=== PATIENT | female | born 1935 | race Caucasian/White ===

== ENCOUNTER → 2017-01-10 | Outpatient (REF) | payer MEDICARE, OTHER ==
[2017-01-10 19:01] LABS: VITAMIN B12 LEVEL 380 PG/ML (247-911)
== END ==
LOC: M LAB REF 17:07
PROVIDERS: ATTEND Internal Medicine
DX: F03.90 Unspecified dementia, unspecified severity, without behavioral disturbance, psychotic disturbance, mood disturbance, and anxiety (principal)

== ENCOUNTER 2018-01-12 22:50 | Emergency (ER) | payer MEDICARE, OTHER ==
[2018-01-12] MEDS: CLINDAMYCIN 150 MG CAP PO (23:30)
[2018-01-12] MEDS: ONDANSETRON 4 MG ORAL DISINTEGRATING TAB (Q0162 PER 1MG) PO (23:30)
[2018-01-12] MEDS: ACETAMINOPHEN TAB 650MG DOSE (2X325MG) PO (23:30)
== END 2018-01-13 00:38 | disposition home or self-care (01) ==
LOC: M ED 01-13 00:38
DX: L03.116 Cellulitis of left lower limb (principal); R11.2 Nausea with vomiting, unspecified; I10 Essential (primary) hypertension; I25.10 Atherosclerotic heart disease of native coronary artery without angina pectoris; I25.2 Old myocardial infarction; F03.90 Unspecified dementia, unspecified severity, without behavioral disturbance, psychotic disturbance, mood disturbance, and anxiety; Z87.19 Personal history of other diseases of the digestive system; Z95.5 Presence of coronary angioplasty implant and graft; Z98.890 Other specified postprocedural states; Z79.899 Other long term (current) drug therapy; Z88.8 Allergy status to other drugs, medicaments and biological substances
CPT/HCPCS: Q0162

== ENCOUNTER → 2018-01-12 | Outpatient (REF) | payer MEDICARE, OTHER | LOC: M LAB REF 16:58 | DX: L03.116 Cellulitis of left lower limb (principal) ==

== ENCOUNTER 2018-06-29 09:42 | Inpatient (IN) | payer MEDICARE, OTHER ==
[~2018-06-29] VITALS: Ht 157.5 cm; Wt 58.0 kg
[~2018-06-29 09:42] MED LIST: AMLO5TAB6; CARV12.5 PO; CLEO150C PO; LOSA50TA88 PO; SERT-155; ZOFR4TAB14 PO
[2018-06-29] MEDS ORDERED: [UNRECOGNIZED DRUG - CODE] PO (09:56)
[2018-06-29] MEDS ORDERED: BAYE325T12 PO (09:56)
[2018-06-29] MEDS ORDERED: LORA0.5T11 PO (09:56)
[2018-06-29] MEDS ORDERED: AMLO25TA PO (09:56)
[2018-06-29] MEDS ORDERED: TRAZ-160 PO (09:56)
[2018-06-29 10:16] LABS: BASO % 0.3 % (0.0-1.0); EOS % 0.4 % (0.0-3.0); HEMATOCRIT 38.8 % (36.0-47.0); HEMOGLOBIN 13.2 g/dl (12.0-15.5); LYMPH % 2.9 % (24.0-44.0); MEAN CORPUSCULAR VOLUME 91.1 fl (80.0-96.0); MONO # 0.7 10^3/uL (0.0-0.8); MONO % 9.8 % (0.0-5.0); NEUTROPHILS # 5.9 10^3/uL (1.8-7.7); NEUTROPHILS % 86.3 % (36.0-66.0); PLATELET COUNT, AUTOMATED 250 10^3/uL (150-450); RED BLOOD COUNT 4.26 10^6/uL (4.00-5.40); WHITE BLOOD COUNT 6.9 10^3/uL (4.0-10.0)
[2018-06-29 10:39] LABS: LYMPH # 0.2 10^3/uL (1.5-4.5)
[2018-06-29 10:46] LABS: ALBUMIN 3.5 GM/DL (3.2-5.2); ALT/SGPT 10 U/L (12-78); BILIRUBIN,DIRECT 0.2 MG/DL (0.0-0.2); BILIRUBIN,TOTAL 1.4 MG/DL (0.2-1.0); BLOOD UREA NITROGEN 15 MG/DL (7-18); CALCIUM LEVEL 8.8 MG/DL (8.8-10.2); CARBON DIOXIDE LEVEL 28 MEQ/L (21-32); CHLORIDE LEVEL 106 MEQ/L (98-107); CK-MB VALUE MASS < 1.0 NG/ML (<3.6); CPK CREATINE PHOSPHOKINASE 63 U/L (26-192); CREATININE FOR GFR 0.88 MG/DL (0.55-1.30); GLOMERULAR FILTRATION RATE > 60.0 (>32); GLUCOSE, FASTING 129 MG/DL (70-100); MB/CK RELATIVE INDEX 1.59 (< OR =4); POTASSIUM SERUM 3.7 MEQ/L (3.5-5.1); SODIUM LEVEL 141 MEQ/L (136-145); THYROID STIMULATING HORMONE 0.379 uIU/ML (0.358-3.740); TOTAL PROTEIN 7.5 GM/DL (6.4-8.2); TROPONIN I < 0.02 NG/ML (< 0.10)
--- NOTE | 2018-06-29 10:56 | REP ---
CT BRAIN WITHOUT CONTRAST: HISTORY: Altered mental status. Comparison brain CT study September 17, 2016. CT FINDINGS: Preliminary digital incident coordinator radiograph is unremarkable. Bone window settings demonstrate an intact bony calvarium. There is heavy vascular calcification in the distal carotid and to some degree, the distal vertebral arteries bilaterally. The visualized paranasal sinuses are clear. No intraorbital abnormality. There is moderate diffuse cerebral atrophy again noted. Physiologic calcification is noted in the basal ganglia on the right unchanged. There are fairly advanced small vessel changes in the periventricular white matter bilaterally. A tiny old lacunar infarct is seen in the head of the caudate nucleus on the left. This is unchanged. There is no evidence of intracranial hemorrhage. No extra-axial fluid collection is seen. No acute infarction is visible. IMPRESSION: Diffuse atrophy, vascular calcification, extensive small vessel atherosclerotic changes. Old lacunar infarct left basal ganglia. No acute intracranial abnormality. Findings are unchanged from September 17, 2016. Electronically Signed by Hari Bush MD 06/29/2018 12:51 P
--- NOTE | 2018-06-29 11:41 | REP ---
CHEST, TWO VIEWS: Two views of the chest are performed and compared to prior study of 12/28/2014. There is no acute infiltrate or pulmonary edema. The heart is not enlarged. There is calcification and tortuosity of the thoracic aorta. There is a moderate hiatal hernia. There are degenerative changes of the spine. IMPRESSION: No acute infiltrate. Electronically Signed by Ravin Mares MD 06/29/2018 04:02 P
[2018-06-29 12:16] LABS: INFLUENZA A AMPLIFICATION POSITIVE (NEGATIVE); INFLUENZA B AMPLIFICATION NEGATIVE (NEGATIVE)
[2018-06-29] MEDS ORDERED: OSELTAMIVIR PHOSPHATE 30MG CAPSULE PO ONE (13:45)
[2018-06-29] MEDS ORDERED: TAMI30CA PO (13:57)
[2018-06-29] MEDS ORDERED: ACETAMINOPHEN 500 MG TAB PO ONE (14:15)
[2018-06-29] MEDS ORDERED: ACETAMINOPHEN 650 MG SUPP As Ordered ONE (15:28)
[2018-06-29] MEDS ORDERED: ACETAMINOPHEN 650 MG SUPP PR ONE (15:30)
[2018-06-29] MEDS ORDERED: ACETAMINOPHEN TAB 650MG DOSE (2X325MG) PO PRN (16:00)
[2018-06-29] MEDS ORDERED: VIAC8.5C PO (16:05)
[2018-06-29] MEDS ORDERED: AMLO5TAB6 PO (16:05)
[2018-06-29] MEDS ORDERED: ASPI1TAB PO (16:05)
[2018-06-29] MEDS ORDERED: ATOR80TA59 PO (16:05)
[2018-06-29] MEDS ORDERED: ZOLO50TA PO (16:05)
[2018-06-29] MEDS ORDERED: NITR4TASL SL (16:05)
[2018-06-29] MEDS ORDERED: FLUTISP (16:05)
[2018-06-29] MEDS ORDERED: RANI150T PO (16:05)
[2018-06-29] MEDS ORDERED: ANUS25SU PR (16:05)
[2018-06-29] MEDS ORDERED: IMOD2TAB16 PO (16:05)
[2018-06-29] MEDS ORDERED: VITA500055 PO (16:05)
[2018-06-29] MEDS ORDERED: FLUTICASONE PROP 0.05% NASAL SPRAY 16 GM (FLONASE) PRN (16:30)
[2018-06-29 18:00] VITALS: BP 134/60
--- NOTE | 2018-06-29 19:00 | HPEPDOC ---
[facility] Medical History & Physical Date of Admission Jun 29, 2018 Primary Care Physician: Renee Ruffin Attending Physician: KEVIN ELLISON MD History and Physical CHIEF COMPLAINT: Altered mental status HISTORY OF PRESENT ILLNESS: Edie Vidales is an 83-year-old white female with a past medical history significant for baseline dementia, hypertension, [place] s/p stent placement in 2013. Given patient's baseline dementia, significant portions of the history was obtained via the medical record and the patient's daughter. Per patient's daughter, Mrs. Vidales had been complaining of nasal congestion and a sore throat for the last 2 weeks. Patient ate dinner with her daughter last evening and went to bed around 9:30 PM. She did not have any acute complaints prior to her daughter's departure. This morning, patient was found by her in her living room undressed and soiled. At the time, the patient was awake but reportedly more confused compared to her baseline mental status. Daughter reports that the patient does have a history of wandering in the evenings. While in the emergency room, a head CT was performed to rule out injury or ischemic event. Image showed diffuse atrophy, vascular calcification, extensive small vessel atherosclerotic changes with an old lacunar infarct in the left ba sameera ganglia. No acute intracranial abnormalities were found and findings were unchanged from a previous study in 09/17/16. Chest x-ray was negative for any acute process and was negative for infiltrate. CBC was negative without leukocytosis. CMP did not show any significant abnormalities. Patient was POS for influenza A. Patient's temperature was measured at 101.8 F. Remaining vitals were stable. Given the patient's cognitive decline and recently diagnosed influenza, she will be admitted for observation and placement. While in the emergency room, patient's daughter was requesting information regards to long-term placement for patient. Currently, the patient independently lives at home with her . She is unable to complete tasks of daily living such as bathing and food preparation without the assistance of her and daughter. According to the daughter, patient's also has dementia and has been declining over the last year. There are no home health aides at this time. PAST MEDICAL HISTORY: 1. Baseline dementia 2. GA with multiple stent placements in 2013 3. GERD 4. Hyperlipidemia 5. Anxiety PAST SURGICAL HISTORY: 1. Hysterectomy 2. Bilateral cataracts SOCIAL HISTORY: Marital status: Patient is , and lives at home, independently, with her Children: Patient does have a daughter with him she presents to emergency department. Per the medical record the patient has a total of 5 children Tobacco use: Daughter denies smoking history ETOH: Daughter denies alcohol use FAMILY HISTORY: Medical history noncontributory given patient's advanced age ALLERGIES: Please see below. REVIEW OF SYSTEMS: Given patient's baseline dementia, ROS obtained from daughter. 12 point ROS as mentioned in HPI, otherwise is negative HOME MEDICATIONS: Please see below. PHYSICAL EXAMINATION: VITAL SIGNS: Temperature 101.8, pulse 72, respiratory rate 20, blood pressure 155/70 (98), pulse oximetry 97 % on room air. GENERAL APPEARANCE: Patient is sleeping hospital bed, arousable, unoriented to person place or time. In no acute distress HEENT: Normocephalic, atraumatic, mucous membranes are moist, EOMI, sclera nonicteric, no cervical lymphadenopathy appreciated, trachea is midline, no JVD CARDIOVASCULAR: Regular rate and rhythm, normal S1 and S2 no murmurs appreciated LUNGS: Clear to auscultation bilaterally, without wheezing rales or rhonchi ABDOMEN: Soft, nontender to palpation MUSCULOSKELETAL: Able to move all extremities equally EXTREMITIES: No peripheral edema, no calf tenderness bilaterally NEUROLOGICAL: Alert the patient remains on oriented to person place or time. This is patient's baseline mental status. No focal neurologic deficits are appreciated LABORATORY DATA: See below. IMAGING: Head CT (06/29/18): Diffuse atrophy, vascular calcification, extensive small vessel atherosclerotic changes. Old lacunar infarct in the left basal ganglia. No acute intracranial abnormality. Findings are unchanged from 09/17/16. Chest x-ray (06/29/18): No acute infiltrate. MICROBIOLOGY: Please see below. ASSESSMENT: Edie Vidales is an 82-year-old female with a past medical history significant for dementia, GA status post stent placement in 2013, hyperlipidemia, hypertension, Vivas's esophagus, and depression/anxiety who presents to the ER for altered mental status. Patient was found this morning in her living room undressed, and soiled. In the emergency room, patient was found to be influenza positive. No leukocytosis or infiltrate on imaging. Patient admitted for observation and likely placement. PLAN: 1. Altered mental status -likely 2/2 to toxic metabolic encephalopathy 2/2 to influenza - patient presents with increased level of altered mental status compared to baseline per daughter. - No evidence of infection supported by no leukocytosis and no evidence of infiltrate on imaging. No antibiotics required this time. Will continue to trend CBC. - Given patient's positive flu diagnosis, treatment with Tamiflu 30 mg BID 2. Hyperlipidemia - Continue home atorvastatin 80 mg 3. Hypertension - Amlodipine 5 mg - Carvedilol 12.5 mg twice a day scheduled - Patient's home Losartan held 4. Anxiety / depression - Continue on trazodone 50 mg by mouth at bedtime - Continue with home lorazepam 0.5 mg every 4 hours as needed - Continue Zoloft 75 mg daily 5. GERD - Famotidine 20 mg twice daily 6. [place] s/p stent placement - Continue aspirin 81 mg daily 7. Debility - Patient's daughter reports a decline in patient's ability to remain independent in the community. - She normally resides at home with her who is also suffering from increasing dementia. Patient does not utilize home health. Daughter assists with bathing the patient and her else prepare meals - In the emergency room, patient spoke with staff regarding the possibility of placement - Social service consult placed DVT prophylaxis: Heparin subcutaneous Vital Signs Vital Signs Date Time Temp Pulse Resp B/P (MAP) Pulse Ox O2 Delivery O2 Flow Rate FiO2 06/29/18 18:00 99.8 86 19 134/60 (84) 97 06/29/18 17:13 Room Air Laboratory Data Labs 24H Laboratory Tests 2 06/29/18 09:54: Bedside Glucose (Misc Panel) 119H 06/29/18 10:01: Anion Gap 7L, Glomerular Filtration Rate > 60.0, Calcium Level 8.8, Aspartate Amino Transf (AST/SGOT) 12, Alanine Aminotransferase (ALT/SGPT) 10L, Alkaline Phosphatase 92, Total Bilirubin 1.4H, Direct Bilirubin 0.2, Total Creatine Kinase 63, Creatine Kinase MB < 1.0, Creatine Kinase MB Relative Index 1.59, Troponin I < 0.02, Total Protein 7.5, Albumin 3.5, Albumin/Globulin Ratio 0.88L, Thyroid Stimulating Hormone (TSH) 0.379 06/29/18 10:02: Immature Granulocyte % (Auto) 0.3, White Blood Count 6.9, Red Blood Count 4.26, Hemoglobin 13.2, Hematocrit 38.8, Mean Corpuscular Volume 91.1, Mean Corpuscular Hemoglobin 31.0, Mean Corpuscular Hemoglobin Concent 34.0, Red Cell Distribution Width 13.0, Platelet Count 250, Neutrophils (%) (Auto) 86.3H, Lymphocytes (%) (Auto) 2.9L, Monocytes (%) (Auto) 9.8H, Eosinophils (%) (Auto) 0.4, Basophils (%) (Auto) 0.3, Neutrophils # (Auto) 5.9, Lymphocytes # (Auto) 0.2L, Monocytes # (Auto) 0.7, Eosinophils # (Auto) 0.0, Basophils # (Auto) 0.0, Nucleated Red Blood Cells % (auto) 0.0 06/29/18 11:19: Influenza Type A (RT-PCR) POSITIVEH, Influenza Type B (RT-PCR) NEGATIVE 06/29/18 18:20: Urine Color YELLOW, Urine Appearance CLEAR, Urine pH 5.0, Urine Specific [place] 1.017, Urine Protein NEGATIVE, Urine Glucose (UA) NEGATIVE, Urine Ketones NEGATIVE, Urine Blood 2+H, Urine Nitrite NEGATIVE, Urine Bilirubin NEGATIVE, Urine Urobilinogen 0.2, Urine Leukocyte Esterase NEGATIVE, Urine WBC (Auto) 2, Urine RBC (Auto) 23H, Urine Hyaline Casts (Auto) 0, Urine Bacteria (Auto) NEGATIVE, Urine Squamous Epithelial Cells 0, Urine Mucus (Auto) SMALL, Urine Sperm (Auto) CBC/BMP Laboratory Tests 06/29/18 10:01 06/29/18 10:02 Red Blood Count 4.26, Mean Corpuscular Volume 91.1, Mean Corpuscular Hemoglobin 31.0, Mean Corpuscular Hemoglobin Concent 34.0, Red Cell Distribution Width 13.0, Neutrophils (%) (Auto) 86.3 H, Lymphocytes (%) (Auto) 2.9 L, Monocytes (%) (Auto) 9.8 H, Eosinophils (%) (Auto) 0.4, Basophils (%) (Auto) 0.3, Neutrophils # (Auto) 5.9, Lymphocytes # (Auto) 0.2 L, Monocytes # (Auto) 0.7, Eosinophils # (Auto) 0.0, Basophils # (Auto) 0.0 Home Medications Scheduled (Viactiv 500-500-40 mg-Unt-Mcg) 1 Chw Chw, 2 CHW PO DAILY Amlodipine Besylate (Amlodipine Besylate) 5 Mg Tab, 5 MG PO QHS Aspirin (Aspirin 81) 81 Mg Tab, 81 MG PO DAILY Atorvastatin Calcium (Atorvastatin Calcium) 80 Mg Tab, 80 MG PO QHS Carvedilol (Carvedilol) 12.5 Mg Tab, 12.5 MG PO BID Cholecalciferol (Vitamin D3) 5,000 Unit Tab, 5,000 UNIT PO DAILY Losartan Potassium (Losartan Potassium) 50 Mg Tab, 50 MG PO BID Ranitidine HCl (Ranitidine HCl) 150 Mg Tab, 1 TAB PO BID Sertraline Hcl (Zoloft) 50 Mg Tab, 75 MG PO DAILY Trazodone HCl (Trazodone HCl) 50 Mg Tab, 50 MG PO QHS Scheduled PRN Fluticasone Propionate (Fluticasone Propionate) 50 Mcg/Act Spr, 1 SPRAY NA DAILY PRN for NASAL CONGESTION Hydrocortisone Acetate (Anusol-Hc) 25 Mg Sup, 25 MG NE QID PRN for HEMORRHOIDS Loperamide Hcl (Imodium A-D) 2 Mg Tab, 2 MG PO PRN PRN for DIARRHEA Lorazepam (Lorazepam) 0.5 Mg Tab, 1-2 TABS PO Q4H PRN for ANXIETY/AGITATION Nitroglycerin (Nitrostat) 0.4 Mg Subl, 0.4 MG SL NITRO PRN for CHEST PAIN Allergies Coded Allergies: Lisinopril (Verified Allergy, Severe, 01/12/18) GME ATTESTATION GME ATTESTATION My faculty preceptor for this patient encounter was physically present during the encounter and was fully available. All aspects of the patient interview, examination, medical decision making process, and medical care plan development were reviewed and approved by the faculty preceptor. The faculty preceptor is aware and concurs with the plan as stated in the body of this note and will attest to such by his/her cosignature. OC AMOS DO Jun 29, 2018 19:00
[2018-06-29] MEDS: ATORVASTATIN 20 MG TAB PO SCH (20:39)
[2018-06-29] MEDS: traZODone 50 MG TAB PO SCH (20:39)
[2018-06-29] MEDS: amLODIPine 5 MG TAB PO SCH (20:40)
[2018-06-29] MEDS: OSELTAMIVIR PHOSPHATE 30MG CAPSULE PO SCH (20:40)
[2018-06-29] MEDS: FAMOTIDINE 20 MG TAB PO SCH (20:40)
[2018-06-29] MEDS: CARVedilol 12.5 MG TAB PO SCH (20:40)
[2018-06-29 22:00] VITALS: BP 136/73
[2018-06-30 02:00] VITALS: BP 133/69
[2018-06-30 06:00] VITALS: BP 140/77
--- NOTE | 2018-06-30 06:17 | ECGEPIP ---
Stationary ECG Study [facility] - ED Test Date: 2018-06-29 Pat Name: JERRY ELY Department: Room: - Gender: F Ecg Technician: TC : 1935 Requested By: FER SWANN Order Number: [id number] Reading MD: Raul Xiao Measurements Intervals [place] Rate: 100 P: 21 NV: 166 QRS: -3 QRSD: 86 T: 11 QT: 345 QTc: 447 Interpretive Statements SINUS TACHYCARDIA NONSPECIFIC T-WAVE ABNORMALITY SIMILAR TO 12/28/14 Electronically Signed On 06-30-2018 6:17:19 EDT by Raul Xiao
[2018-06-30 06:47] LABS: BASO % 0.5 % (0.0-1.0); HEMATOCRIT 35.2 % (36.0-47.0); HEMOGLOBIN 11.7 g/dl (12.0-15.5); LYMPH # 0.7 10^3/uL (1.5-4.5); LYMPH % 15.6 % (24.0-44.0); MEAN CORPUSCULAR HEMOGLOBIN 30.5 pg (27.0-33.0); MEAN CORPUSCULAR HGB CONC 33.2 g/dl (32.0-36.5); MEAN CORPUSCULAR VOLUME 91.7 fl (80.0-96.0); MONO # 0.8 10^3/uL (0.0-0.8); MONO % 17.9 % (0.0-5.0); NEUTROPHILS # 2.8 10^3/uL (1.8-7.7); NEUTROPHILS % 65.8 % (36.0-66.0); PLATELET COUNT, AUTOMATED 182 10^3/uL (150-450); RED BLOOD COUNT 3.84 10^6/uL (4.00-5.40); WHITE BLOOD COUNT 4.2 10^3/uL (4.0-10.0)
[2018-06-30 07:09] LABS: CALCIUM LEVEL 8.2 MG/DL (8.8-10.2); CREATININE FOR GFR 1.05 MG/DL (0.55-1.30); GLOMERULAR FILTRATION RATE 53.2 (>32); POTASSIUM SERUM 3.5 MEQ/L (3.5-5.1)
[2018-06-30] MEDS: OSELTAMIVIR PHOSPHATE 30MG CAPSULE PO SCH ×4 (09:00→20:55)
[2018-06-30] MEDS: SERTRALINE HCL 25 MG TABLET PO SCH ×3 (09:00→09:47)
[2018-06-30] MEDS: ASPIRIN 81 MG ENTERIC TAB PO SCH ×3 (09:00→09:47)
[2018-06-30] MEDS: FAMOTIDINE 20 MG TAB PO SCH ×4 (09:00→20:55)
[2018-06-30] MEDS: CARVedilol 12.5 MG TAB PO SCH ×4 (09:00→20:56)
[2018-06-30] MEDS: ENOXAPARIN 30 MG/0.3 ML SYR (J1650) SC SCH ×3 (09:00→09:47)
[2018-06-30 10:00] VITALS: BP 142/65
--- NOTE | 2018-06-30 10:09 | IPNPDOC ---
Text Note Date of Service The patient was seen on 06/30/18. NOTE SUBJECTIVE: Edie Vidales is an 83-year-old white female with a past medical history significant for baseline dementia, hypertension, [place] s/p stent placement in 2013. Patient admitted on 06/29/18 for POS influenza A and likely placement: Patient was interviewed and examined in her hospital room. Given patient's significant baseline dementia, and appropriate review of systems was unable to be obtained. She was however, awake and alert. Vitals are stable. Patient remains afebrile without leukocytosis. A nonproductive cough was heard during examination. PHYSICAL EXAMINATION: VITAL SIGNS: See below. GENERAL APPEARANCE: Patient is awake, sitting upright in her hospital chair eating breakfast. She is not oriented to person place or time. She does not appear to be in any acute distress HEENT: Normocephalic, atraumatic, mucous membranes are moist, EOMI, sclera nonicteric, no JVD CARDIOVASCULAR: Regular rate and rhythm, normal S1 and S2 no murmurs appreciated LUNGS: Clear to auscultation bilaterally, without wheezing rales or rhonchi ABDOMEN: Soft, nontender to palpation, no masses MUSCULOSKELETAL: Able to move all extremities equally EXTREMITIES: No peripheral edema, no calf tenderness bilaterally NEUROLOGICAL: Not oriented to person place or time. This is patient's baseline mental status. No focal neurologic deficits are appreciated LABORATORY DATA: See below. IMAGING: Head CT (06/29/18): Diffuse atrophy, vascular calcification, extensive small vessel atherosclerotic changes. Old lacunar infarct in the left basal ganglia. No acute intracranial abnormality. Findings are unchanged from 09/17/16. Chest x-ray (06/29/18): No acute infiltrate. MICROBIOLOGY: Please see below. ASSESSMENT/PLAN: Edie Vidales is an 82-year-old female with a past medical history significant for dementia, [place] status post stent placement in 2013, hyperlipidemia, hypertension, Vivas's esophagus, and depression/anxiety who presents to the ER for altered mental status. Patient was found this morning in her living room undressed, and soiled. In the emergency room, patient was found to be influenza positive. No leukocytosis or infiltrate on imaging. Patient admitted for observation and likely placement. PLAN: 1. Altered mental status -likely 2/2 to toxic metabolic encephalopathy 2/2 to influenza - History of baseline dementia - Patient remains afebrile, without leukocytosis, negative imaging performed the emergency department. - c/w Tamiflu 30 mg BID 2. Hyperlipidemia - Continue home atorvastatin 80 mg 3. Hypertension - Amlodipine 5 mg - Carvedilol 12.5 mg twice a day scheduled - Patient's home Losartan held 4. Anxiety / depression - Continue on trazodone 50 mg by mouth at bedtime - Continue with home lorazepam 0.5 mg every 4 hours as needed - Continue Zoloft 75 mg daily 5. GERD - Famotidine 20 mg twice daily 6. [place] s/p stent placement - Continue aspirin 81 mg daily 7. Debility - Patient's daughter reports a decline in patient's ability to remain in dependent in the community. - She normally resides at home with her who is also suffering from increasing dementia. Patient does not utilize home health. Daughter assists with bathing the patient and her else prepare meals - In the emergency room, patient spoke with staff regarding the possibility of placement - Social service consult placed DVT Prophylaxis: Lovenox 30 mg Dispo: Likely will require placement VSHoney, I+O VS, Honey, I+O Laboratory Tests 06/29/18 10:01 06/29/18 10:02 Red Blood Count 4.26, Mean Corpuscular Volume 91.1, Mean Corpuscular Hemoglobin 31.0, Mean Corpuscular Hemoglobin Concent 34.0, Red Cell Distribution Width 13.0, Neutrophils (%) (Auto) 86.3 H, Lymphocytes (%) (Auto) 2.9 L, Monocytes (%) (Auto) 9.8 H, Eosinophils (%) (Auto) 0.4, Basophils (%) (Auto) 0.3, Neutrophils # (Auto) 5.9, Lymphocytes # (Auto) 0.2 L, Monocytes # (Auto) 0.7, Eosinophils # (Auto) 0.0, Basophils # (Auto) 0.0 06/30/18 05:58 Red Blood Count 3.84 L, Mean Corpuscular Volume 91.7, Mean Corpuscular Hemoglobin 30.5, Mean Corpuscular Hemoglobin Concent 33.2, Red Cell Distribution Width 13.2, Neutrophils (%) (Auto) 65.8, Lymphocytes (%) (Auto) 15.6 L, Monocytes (%) (Auto) 17.9 H, Eosinophils (%) (Auto) 0.0, Basophils (%) (Auto) 0.5, Neutrophils # (Auto) 2.8, Lymphocytes # (Auto) 0.7 L, Monocytes # (Auto) 0.8, Eosinophils # (Auto) 0.0, Basophils # (Auto) 0.0, Calcium Level 8.2 L Vital Signs Date Time Temp Pulse Resp B/P (MAP) Pulse Ox O2 Delivery O2 Flow Rate FiO2 06/30/18 06:00 98.6 84 18 140/77 (98) 96 06/29/18 17:13 Room Air I&O- Last 24 Hours up to 6 AM 06/30/18 06:00 Intake Total 360 ml Output Total 700 ml Balance -340 ml GME ATTESTATION GME ATTESTATION My faculty preceptor for this patient encounter was physically present during the encounter and was fully available. All aspects of the patient interview, examination, medical decision making process, and medical care plan development were reviewed and approved by the faculty preceptor. The faculty preceptor is aware and concurs with the plan as stated in the body of this note and will attest to such by his/her cosignature. OC AMOS DO Jun 30, 2018 10:09
[2018-06-30 14:00] VITALS: BP 161/77
[2018-06-30] MEDS: ATORVASTATIN 20 MG TAB PO SCH (20:55)
[2018-06-30] MEDS: traZODone 50 MG TAB PO SCH (20:55)
[2018-06-30] MEDS: amLODIPine 5 MG TAB PO SCH (20:56)
[2018-06-30 22:00] VITALS: BP 111/61
[2018-07-01] VITALS (8 sets, daily range): BP systolic 92–145; BP diastolic 52–75
[2018-07-01] MEDS: OSELTAMIVIR PHOSPHATE 30MG CAPSULE PO SCH ×2 (08:05→20:14)
[2018-07-01] MEDS: ASPIRIN 81 MG ENTERIC TAB PO SCH (08:05)
[2018-07-01] MEDS: CARVedilol 12.5 MG TAB PO SCH ×3 (08:05→20:15)
[2018-07-01] MEDS: FAMOTIDINE 20 MG TAB PO SCH ×2 (08:05→20:15)
[2018-07-01] MEDS: ENOXAPARIN 30 MG/0.3 ML SYR (J1650) SC SCH (08:06)
[2018-07-01] MEDS: SERTRALINE HCL 25 MG TABLET PO SCH (08:06)
--- NOTE | 2018-07-01 11:03 | IPNPDOC ---
Text Note Date of Service The patient was seen on 07/01/18. NOTE SUBJECTIVE: Edie Vidales is an 83-year-old white female with a past medical history significant for baseline dementia, hypertension, [place] s/p stent placement in 2013. Patient admitted on 06/29/18 for POS influenza A and likely placement: Vision was interviewed and examined in her hospital room this morning. Patient was found to be seated in her hospital chair eating breakfast. Patient does have baseline dementia remained evident during our discussion today. Denies any acute complaints including chest pain/pressure or difficulty breathing. Yesterday, nursing staff had asked for patient to be monitored by a sitter after she was found wandering outside of her hospital room. Patient has had no issues overnight, remaining commonly in her hospital room. Per nursing staff, no signs of agitation or aggression. PHYSICAL EXAMINATION: VITAL SIGNS: See below. GENERAL APPEARANCE: Patient is awake, sitting upright in her hospital chair eating breakfast. She is not oriented to person place or time. She does not appear to be in any acute distress. She is very pleasant, and willing to engage in limited conversation. HEENT: Normocephalic, atraumatic, mucous membranes are moist, EOMI, sclera nonicteric, no JVD CARDIOVASCULAR: Regular rate and rhythm, normal S1 and S2 no murmurs appreciated LUNGS: Clear to auscultation bilaterally, without wheezing rales or rhonchi ABDOMEN: Soft, nontender to palpation, no masses MUSCULOSKELETAL: Able to move all extremities equally EXTREMITIES: No peripheral edema, no calf tenderness bilaterally NEUROLOGICAL: Not oriented to person place or time. This is patient's baseline mental status. No focal neurologic deficits are appreciated LABORATORY DATA: See below. IMAGING: Head CT (06/29/18): Diffuse atrophy, vascular calcification, extensive small ve ssel atherosclerotic changes. Old lacunar infarct in the left basal ganglia. No acute intracranial abnormality. Findings are unchanged from 09/17/16. Chest x-ray (06/29/18): No acute infiltrate. MICROBIOLOGY: Please see below. ASSESSMENT/PLAN: Edie Vidales is an 82-year-old female with a past medical history significant for dementia, [place] status post stent placement in 2013, hyperlipidemia, hypertension, Vivas's esophagus, and depression/anxiety who presents to the ER for altered mental status. Patient was found this morning in her living room undressed, and soiled. In the emergency room, patient was found to be influenza positive. No leukocytosis or infiltrate on imaging. Patient admitted for observation and likely placement. PLAN: 1. Altered mental status -likely 2/2 to toxic metabolic encephalopathy 2/2 to influenza - History of baseline dementia - Overnight, patient has remained afebrile. Morning labs negative for leukocytosis. - c/w Tamiflu 30 mg BID - Sitter that was placed yesterday will be discontinued given the patient does not appear to be aggressive or flight risk. 2. Hyperlipidemia - Continue home atorvastatin 80 mg 3. Hypertension - Amlodipine 5 mg - Carvedilol 12.5 mg twice a day scheduled - Patient's home Losartan held 4. Anxiety / depression - Continue on trazodone 50 mg by mouth at bedtime - Continue with home lorazepam 0.5 mg every 4 hours as needed - Continue Zoloft 75 mg daily 5. GERD - Famotidine 20 mg twice daily 6. [place] s/p stent placement - Continue aspirin 81 mg daily 7. Debility - Patient's daughter reports a decline in patient's ability to remain independent in the community. - She normally resides at home with her who is also suffering from increasing dementia. Patient does not utilize home health. Daughter assists with bathing the patient and her else prepare meals - In the emergency room, patient spoke with staff regarding the possibility of placement - Social service consult placed DVT Prophylaxis: Lovenox 30 mg Dispo: Patient requires placement, social media director consult placed. VS,Fishbone, I+O VS, Fishbone, I+O Vital Signs Date Time Temp Pulse Resp B/P (MAP) Pulse Ox O2 Delivery O2 Flow Rate FiO2 07/01/18 10:00 97.3 69 19 111/55 (73) 98 06/29/18 17:13 Room Air I&O- Last 24 Hours up to 6 AM 07/01/18 06:00 Intake Total 880 ml Output Total 0 ml Balance 880 ml GME ATTESTATION GME ATTESTATION My faculty preceptor for this patient encounter was physically present during the encounter and was fully available. All aspects of the patient interview, examination, medical decision making process, and medical care plan development were reviewed and approved by the faculty preceptor. The faculty preceptor is aware and concurs with the plan as stated in the body of this note and will attest to such by his/her cosignature. OC AMOS DO Jul 01, 2018 11:03
[2018-07-01] MEDS: ATORVASTATIN 20 MG TAB PO SCH (20:14)
[2018-07-01] MEDS: amLODIPine 5 MG TAB PO SCH (20:15)
[2018-07-01] MEDS: traZODone 50 MG TAB PO SCH (20:15)
[2018-07-02] VITALS (9 sets, daily range): BP systolic 100–172; BP diastolic 51–86
[2018-07-02] MEDS ORDERED: ONDANSETRON 4MG/2ML VIAL (J2405) IV ONE (00:45)
[2018-07-02 01:44] LABS: BLOOD UREA NITROGEN 26 MG/DL (7-18); CALCIUM LEVEL 8.2 MG/DL (8.8-10.2); CARBON DIOXIDE LEVEL 23 MEQ/L (21-32); CHLORIDE LEVEL 106 MEQ/L (98-107); CPK CREATINE PHOSPHOKINASE 314 U/L (26-192); GLOMERULAR FILTRATION RATE > 60.0 (>32); GLUCOSE, FASTING 152 MG/DL (70-100); MB/CK RELATIVE INDEX 0.83 (< OR =4); POTASSIUM SERUM 3.4 MEQ/L (3.5-5.1); SODIUM LEVEL 139 MEQ/L (136-145); TROPONIN I < 0.02 NG/ML (< 0.10)
--- NOTE | 2018-07-02 04:18 | IPNPDOC ---
Text Note Date of Service The patient was seen on 07/02/18. NOTE Subjective: A max cart was called to this patient's room that I attended. Upon my arrival patient was awake and laying on the bed. I was able to feel a popliteal pulse bilaterally however, I was not able to feel dorsalis pedis or posterior tibial pulses bilaterally. Patient became more awake and responsive. Patient was on ALC status previously. Nursing staff said that they had got the patient up to go to the bathroom and on the way back from the bathroom the patient said "I can't do this" and had to lay down. Nursing staff brought her back quickly to the bed where she became unresponsive. Nursing staff said they were not able to feel a pulse so they began compressions and called a max cart. Soon after that the patient woke up and compressions were stopped. Patient began to feel like she needed to vomit and patient was sat up where she says she was feeling better however, she was still feeling nauseous. Objective: Vitals: See below Gen.: When I first walked in the room, patient was alert to verbal stimulus and was laying flat on the bed. Patient appeared like she was about to vomit. As patient became more stable, patient was more alert, was able to follow commands, and was making good eye contact. Patient was holding a bucket in front of her face however, she did not vomit when I was in the room. Cardiovascular: Regular rate and rhythm with no murmurs Respiratory: Clear to auscultation bilaterally Extremities popliteal pulses felt bilaterally at first, dorsalis pedis and posterior tibial pulses were unable to felt bilaterally. As patient became more stable dorsalis pedis and posterior tibial pulses were felt bilaterally. Laboratory data: See below Assessment/plan: 82-year-old female who had a max cart called on her for unresponsiveness and pulselessness. Patient regained pulse within 10 seconds. Patient had compressions done for a short amount of time. At this time it seems like the patient most likely had a vasovagal response and passed out. Twelve-lead EKG was performed and showed normal sinus rhythm. BMP and cardiac markers were also pe rformed which are listed below. Patient was stabilized and max cart was finished. Patient remained on the medical surgical floor. VS,Fishbone, I+O VS, Fishbone, I+O Laboratory Tests 07/02/18 01:13 Calcium Level 8.2 L, Total Creatine Kinase 314 #H Vital Signs Date Time Temp Pulse Resp B/P (MAP) Pulse Ox O2 Delivery O2 Flow Rate FiO2 07/02/18 02:00 97.1 50 14 100/51 (67) 90 06/29/18 17:13 Room Air I&O- Last 24 Hours up to 6 AM 07/02/18 06:00 Intake Total 540 ml Output Total 0 ml Balance 540 ml GME ATTESTATION GME ATTESTATION My faculty preceptor for this patient encounter was physically present during the encounter and was fully available. All aspects of the patient interview, examination, medical decision making process, and medical care plan development were reviewed and approved by the faculty preceptor. The faculty preceptor is aware and concurs with the plan as stated in the body of this note and will attest to such by his/her cosignature. YUVAL GUILLEN DO Jul 02, 2018 04:18
[2018-07-02] MEDS ORDERED: POTASSIUM CHLORIDE 10 MEQ SR TABLET PO ONE (08:30)
[2018-07-02] MEDS: CARVedilol 12.5 MG TAB PO SCH (09:47)
[2018-07-02] MEDS: FAMOTIDINE 20 MG TAB PO SCH ×2 (09:48→20:31)
[2018-07-02] MEDS: ENOXAPARIN 30 MG/0.3 ML SYR (J1650) SC SCH (09:48)
[2018-07-02] MEDS: ASPIRIN 81 MG ENTERIC TAB PO SCH (09:48)
[2018-07-02] MEDS: SERTRALINE HCL 25 MG TABLET PO SCH (09:48)
[2018-07-02] MEDS: OSELTAMIVIR PHOSPHATE 30MG CAPSULE PO SCH ×2 (09:48→20:30)
[2018-07-02 09:49] LABS: CPK CREATINE PHOSPHOKINASE 269 U/L (26-192); MB/CK RELATIVE INDEX 0.63 (< OR =4); TROPONIN I < 0.02 NG/ML (< 0.10)
--- NOTE | 2018-07-02 09:56 | IPNPDOC ---
Date Seen The patient was seen on 07/02/18. Progress Note SUBJECTIVE: Dalton prado called last night due to unresponsiveness after going to the bathroom, noted to have bradycardia on coreg. Currently back to baseline mental status. on Tele and echo ordered. PHYSICAL EXAMINATION: VITAL SIGNS: See below. Tele GENERAL APPEARANCE: AAOx1 only. no pallor. no facial asymmetry. pleasantly confused. fluent speech HEENT: Normocephalic, atraumatic, mucous membranes are moist, EOMI, sclera nonicteric, no JVD CARDIOVASCULAR: sinus bradycardia normal S1 and S2 no murmurs appreciated LUNGS: Clear to auscultation bilaterally, without wheezing rales or rhonchi ABDOMEN: Soft, nontender to palpation, no masses MUSCULOSKELETAL: Able to move all extremities equally EXTREMITIES: No peripheral edema, no calf tenderness bilaterally NEUROLOGICAL: AAO x 1 person LABORATORY DATA: See below. IMAGING: Head CT (06/29/18): Diffuse atrophy, vascular calcification, extensive small vessel atherosclerotic changes. Old lacunar infarct in the left basal ganglia. No acute intracranial abnormality. Findings are unchanged from 09/17/16. Chest x-ray (06/29/18): No acute infiltrate. MICROBIOLOGY: Please see below. ASSESSMENT/PLAN: Edie Vidales is an 83-year-old white female with a past medical history significant for baseline dementia, hypertension, [place] s/p stent placement in 2013. Given patient's baseline dementia, significant portions of the history was obtained via the medical record and the patient's daughter. Per patient's daughter, Mrs. Vidales had been complaining of nasal congestion and a sore throat for the last 2 weeks. Patient ate dinner with her daughter last evening and went to bed around 9:30 PM. She did not have any acute complaints prior to her daughter's departure. This morning, patient was found by her in her living room undressed and soiled. At the time, the patient was awake but reportedly more confused compared to her baseline mental status. Daughter reports that the patient does have a history of wandering in the evenings. While in the emergency room, a head CT was performed to rule out injury or ischemic event. Image showed diffuse atrophy, vascular calcification, extensive small vessel atherosclerotic changes with an old lacunar infarct in the left basal ganglia. No acute intracranial abnormalities were found and findings were unchanged from a previous study in 09/17/16. Chest x-ray was negative for any acute process and was negative for infiltrate. CBC was negative without leukocytosis. CMP did not show any significant abnormalities. Patient was POS for influenza A. Patient's temperature was measured at 101.8 F. Remaining vitals were stable. Given the patient's cognitive decline and recently diagnosed influenza, she will be admitted for observation and placement. While in the emergency room, patient's daughter was requesting information regards to long-term placement for patient. Currently, the patient independently lives at home with her . She is unable to complete tasks of daily living such as bathing and food preparation without the assistance of her and daughter. According to the daughter, patient's also has dementia and has been declining over the last year. There are no home health aides at this time. Vasovagal syncope tele. echo. holding parameters on coreg. influenza Tamiflu x5days Hyperlipidemia - Continue home atorvastatin 80 mg Hypertension - Amlodipine 5 mg - Carvedilol 12.5 mg twice a day scheduled with holding parameters Anxiety / depression - Continue on trazodone 50 mg by mouth at bedtime - Continue with home lorazepam 0.5 mg every 4 hours as needed - Continue Zoloft 75 mg daily GERD - Famotidine 20 mg twice daily CAD [place] s/p stent placement - Continue aspirin 81 mg daily Dementia -placement DVT Prophylaxis: Lovenox 30 mg Dispo: Patient requires placement, geriatric social work professor consult placed. VS, I&O, 24H, Fishbone Vital Signs/I&O Vital Signs Date Time Temp Pulse Resp B/P (MAP) Pulse Ox O2 Delivery O2 Flow Rate FiO2 07/02/18 09:47 68 130/68 07/02/18 07:30 97.7 16 97 06/29/18 17:13 Room Air I&O- Last 24 Hours up to 6 AM 07/02/18 05:59 Intake Total 540 ml Output Total 0 ml Balance 540 ml Laboratory Data 24H LABS Laboratory Tests 2 07/02/18 00:32: Bedside Glucose (Misc Panel) 116H 07/02/18 01:13: Anion Gap 10, Glomerular Filtration Rate > 60.0, Blood Urea Nitrogen 26H, Creatinine 0.90, Sodium Level 139, Potassium Level 3.4L, Chloride Level 106, Carbon Dioxide Level 23, Calcium Level 8.2L, Total Creatine Kinase 314#H, Creatine Kinase MB 3.0, Creatine Kinase MB Relative Index 0.83, Troponin I < 0.02 07/02/18 08:53: Total Creatine Kinase 269H, Creatine Kinase MB 2.0, Creatine Kinase MB Relative Index 0.63, Troponin I < 0.02 CBC/BMP Laboratory Tests 07/02/18 01:13 Calcium Level 8.2 L, Total Creatine Kinase 314 #H LILO AMAYA MD Jul 02, 2018 09:54
[2018-07-02 17:36] LABS: CPK CREATINE PHOSPHOKINASE 236 U/L (26-192); MB/CK RELATIVE INDEX 0.55 (< OR =4); TROPONIN I < 0.02 NG/ML (< 0.10)
[2018-07-02] MEDS: amLODIPine 5 MG TAB PO SCH (20:31)
[2018-07-02] MEDS: ATORVASTATIN 20 MG TAB PO SCH (20:31)
[2018-07-02] MEDS: traZODone 50 MG TAB PO SCH (20:38)
[2018-07-03 02:00] VITALS: BP 138/65
[2018-07-03 06:00] VITALS: BP 141/67
--- NOTE | 2018-07-03 07:38 | ECHO ---
DATE OF STUDY: 07/02/2018 REFERRING PHYSICIAN: Dr. Doris Gaona INDICATION: Syncope. HEIGHT: 5 feet 2 inches. WEIGHT: 127 pounds 14 ounces. 2-D MEASUREMENTS: Aortic root: 2.9 cm Proximal ascending aorta: 3.2 cm Left atrium: 4.2 cm Ventricular septum: 1.00 cm Posterior wall: 1.10 cm Left ventricle diastole: 4.4 cm Left ventricle systole: 2.5 cm DOPPLER MEASUREMENTS: Aortic valve velocity: 121 cm/sec LVOT velocity: 87.7 cm/sec LVOT VTI: 18.3 cm Mild mitral regurgitation Mitral E velocity: 65.2 cm/sec Mitral A velocity: 87.9 cm/sec Mitral deceleration time: 229 ms Mild tricuspid regurgitation Estimated right ventricular systolic pressure 16 mmHg assuming a right atrial pressure of 5 mmHg Mild pulmonic regurgitation Pulmonary artery systolic pressure: 14 mmHg MITRAL ANNULAR TISSUE DOPPLER: E prime lateral: 7.1 cm/sec E prime septal: 5.4 cm/sec DESCRIPTION: The rhythm was predominantly sinus bradycardia in the 50s. Image quality was good. No pericardial effusion. This was a 2-D, M-mode, color flow Doppler and pulse wave Doppler examination and included mitral annular tissue Doppler. CONCLUSIONS: 1. Normal left ventricle internal dimensions and wall thickness. Normal regional LV wall motion and wall thickening. Normal LV systolic function. LVEF 64% (3-D quantitation). Grade 1 LV diastolic function (impaired relaxation filling pattern). 2. Mild left atrial dilatation. 3. Mild aortic valve sclerosis of a 3-cuspid aortic valve. No aortic regurgitation. 4. Mild mitral annular calcification. Mild mitral regurgitation. 5. Otherwise normal appearing echocardiogram-Doppler.
[2018-07-03] MEDS: SERTRALINE HCL 25 MG TABLET PO SCH (09:00)
[2018-07-03] MEDS: ENOXAPARIN 30 MG/0.3 ML SYR (J1650) SC SCH (09:00)
[2018-07-03] MEDS: ASPIRIN 81 MG ENTERIC TAB PO SCH (09:00)
[2018-07-03] MEDS: FAMOTIDINE 20 MG TAB PO SCH ×2 (09:00→20:01)
[2018-07-03] MEDS: OSELTAMIVIR PHOSPHATE 30MG CAPSULE PO SCH ×2 (09:00→20:01)
[2018-07-03 09:16] LABS: BASO % 0.6 % (0.0-1.0); EOS % 0.2 % (0.0-3.0); HEMATOCRIT 37.4 % (36.0-47.0); HEMOGLOBIN 12.8 g/dl (12.0-15.5); LYMPH # 1.4 10^3/uL (1.5-4.5); LYMPH % 25.3 % (24.0-44.0); MEAN CORPUSCULAR HEMOGLOBIN 30.8 pg (27.0-33.0); MEAN CORPUSCULAR HGB CONC 34.2 g/dl (32.0-36.5); MEAN CORPUSCULAR VOLUME 89.9 fl (80.0-96.0); MONO # 0.4 10^3/uL (0.0-0.8); MONO % 7.8 % (0.0-5.0); NEUTROPHILS # 3.5 10^3/uL (1.8-7.7); NEUTROPHILS % 65.9 % (36.0-66.0); PLATELET COUNT, AUTOMATED 202 10^3/uL (150-450); RED BLOOD COUNT 4.16 10^6/uL (4.00-5.40); WHITE BLOOD COUNT 5.4 10^3/uL (4.0-10.0)
--- NOTE | 2018-07-03 09:38 | IPNPDOC ---
Date Seen The patient was seen on 07/03/18. Progress Note SUBJECTIVE: still pleasant ly confused no new c/o Max cart called 07/01/18 due to unresponsiveness after going to the bathroom, noted to have bradycardia on coreg. Echo reviewed. holding parameters placed on coreg. no orthostasis. Currently back to baseline mental status. PHYSICAL EXAMINATION: VITAL SIGNS: See below. GENERAL APPEARANCE: AAOx1 only. no pallor. no facial asymmetry. pleasantly confused. fluent speech HEENT: Normocephalic, atraumatic, mucous membranes are moist, EOMI, sclera nonicteric, no JVD CARDIOVASCULAR: sinus bradycardia normal S1 and S2 no murmurs appreciated LUNGS: Clear to auscultation bilaterally, without wheezing rales or rhonchi ABDOMEN: Soft, nontender to palpation, no masses MUSCULOSKELETAL: Able to move all extremities equally EXTREMITIES: No peripheral edema, no calf tenderness bilaterally NEUROLOGICAL: AAO x 1 person LABORATORY DATA: See below. IMAGING: Head CT (06/29/18): Diffuse atrophy, vascular calcification, extensive small vessel atherosclerotic changes. Old lacunar infarct in the left basal ganglia. No acute intracranial abnormality. Findings are unchanged from 09/17/16. Chest x-ray (06/29/18): No acute infiltrate. MICROBIOLOGY: Please see below . DATE OF STUDY: 07/02/2018 REFERRING PHYSICIAN: Dr. Lilo Amaya INDICATION: Syncope. HEIGHT: 5 feet 2 inches. WEIGHT: 127 pounds 14 ounces. 2-D MEASUREMENTS: Aortic root: 2.9 cm Proximal ascending aorta: 3.2 cm Left atrium: 4.2 cm Ventricular septum: 1.00 cm Posterior wall: 1.10 cm Left ventricle diastole: 4.4 cm Left ventricle systole: 2.5 cm DOPPLER MEASUREMENTS: Aortic valve velocity: 121 cm/sec LVOT velocity: 87.7 cm/sec LVOT VTI: 18.3 cm Mild mitral regurgitation Mitral E velocity: 65.2 cm/sec Mitral A velocity: 87.9 cm/sec Mitral deceleration time: 229 ms Mild tricuspid regurgitation Estimated right ventricular systolic pressure 16 mmHg assuming a right atrial pressure of 5 mmHg Mild pulmonic regurgitation Pulmonary artery systolic pressure: 14 mmHg MITRAL ANNULAR TISSUE DOPPLER: E prime lateral: 7.1 cm/sec E prime septal: 5.4 cm/sec DESCRIPTION: The rhythm was predominantly sinus bradycardia in the 50s. Image quality was good. No pericardial effusion. This was a 2-D, M-mode, color flow Doppler and pulse wave Doppler examination and included mitral annular tissue Doppler. CONCLUSIONS: 1. Normal left ventricle internal dimensions and wall thickness. Normal regional LV wall motion and wall thickening. Normal LV systolic function. LVEF 64% (3-D quantitation). Grade 1 LV diastolic function (impaired relaxation filling pattern). 2. Mild left atrial dilatation. 3. Mild aortic valve sclerosis of a 3-cuspid aortic valve. No aortic regurgitation. 4. Mild mitral annular calcification. Mild mitral regurgitation. 5. Otherwise normal appearing echocardiogram-Doppler. DD: Jarad Roche MD [facility] 07/02/18 1528 ASSESSMENT/PLAN: Edie Vidales is an 83-year-old white female with a past medical history significant for baseline dementia, hypertension, [place] s/p stent placement in 2013. Given patient's baseline dementia, significant portions of the history was obtained via the medical record and the patient's daughter. Per patient's daughter, Mrs. Vidales had been complaining of nasal congestion and a sore throat for the last 2 weeks. Patient ate dinner with her daughter last and went to bed around 9:30 PM. She did not have any acute complaints prior to her daughter's departure. This morning, patient was found by her in her living room undressed and soiled. At the time, the patient was awake but reportedly more confused compared to her baseline mental status. Daughter reports that the patient does have a history of wandering in the evenings. While in the emergency room, a head CT was performed to rule out injury or ischemic event. Image showed diffuse atrophy, vascular calcification, extensive small vessel atherosclerotic changes with an old lacunar infarct in the left basal ganglia. No acute intracranial abnormalities were found and findings were unchanged from a previous study in 09/17/16. Chest x-ray was negative for any acute process and was negative for infiltrate. CBC was negative without leukocytosis. CMP did not show any significant abnormalities. Patient was POS for influenza A. Patient's temperature was measured at 101.8 F. Remaining vitals were stable. Given the patient's cognitive decline and recently diagnosed influenza, she will be admitted for observation and placement. While in the emergency room, patient's daughter was requesting information regards to long-term placement for patient. Currently, the patient independently lives at home with her . She is unable to complete tasks of daily living such as bathing and food preparation without the assistance of her and daughter. According to the daughter, patient's also has dementia and has been declining over the last year. There are no home health aides at this time. Vasovagal syncope tele. echo reviewed holding parameters on coreg. influenza Tamiflu x5days Hyperlipidemia - Continue home atorvastatin 80 mg Hypertension - Amlodipine 5 mg - Carvedilol 12.5 mg twice a day scheduled with holding parameters Anxiety / depression - Continue on trazodone 50 mg by mouth at bedtime - Continue with home lorazepam 0.5 mg every 4 hours as needed - Continue Zoloft 75 mg daily GERD - Famotidine 20 mg twice daily CAD [place] s/p stent placement - Continue aspirin 81 mg daily Dementia -placement DVT Prophylaxis: Lovenox 30 mg Dispo: Patient requires placement, social service agency director consult placed. VS, I&O, 24H, Fishbone Vital Signs/I&O Vital Signs Date Time Temp Pulse Resp B/P (MAP) Pulse Ox O2 Delivery O2 Flow Rate FiO2 07/03/18 06:00 98.5 61 18 141/67 (91) 92 06/29/18 17:13 Room Air I&O- Last 24 Hours up to 6 AM 07/03/18 06:00 Intake Total 540 ml Output Total 0 ml Balance 540 ml Laboratory Data 24H LABS Laboratory Tests 2 07/02/18 08:53: Total Creatine Kinase 269H, Creatine Kinase MB 2.0, Creatine Kinase MB Relative Index 0.63, Troponin I < 0.02 07/02/18 16:57: Total Creatine Kinase 236H, Creatine Kinase MB 1.0, Creatine Kinase MB Relative Index 0.55, Troponin I < 0.02 LILO AMAYA MD Jul 03, 2018 08:38
[2018-07-03 09:42] LABS: CALCIUM LEVEL 8.4 MG/DL (8.8-10.2); CREATININE FOR GFR 0.95 MG/DL (0.55-1.30); GLOMERULAR FILTRATION RATE 59.7 (>32); POTASSIUM SERUM 3.8 MEQ/L (3.5-5.1)
[2018-07-03 10:00] VITALS: BP 144/73
[2018-07-03 14:00] VITALS: BP 124/73
[2018-07-03 18:00] VITALS: BP 132/79
[2018-07-03] MEDS: traZODone 50 MG TAB PO SCH (20:01)
[2018-07-03] MEDS: ATORVASTATIN 20 MG TAB PO SCH (20:01)
[2018-07-03] MEDS: amLODIPine 5 MG TAB PO SCH (20:02)
[2018-07-03 22:00] VITALS: BP 142/75
[2018-07-04] VITALS (7 sets, daily range): BP systolic 105–142; BP diastolic 62–87
[2018-07-04] MEDS: OSELTAMIVIR PHOSPHATE 30MG CAPSULE PO SCH (08:41)
[2018-07-04] MEDS: ASPIRIN 81 MG ENTERIC TAB PO SCH (08:41)
[2018-07-04] MEDS: FAMOTIDINE 20 MG TAB PO SCH ×2 (08:41→20:00)
[2018-07-04] MEDS: ENOXAPARIN 30 MG/0.3 ML SYR (J1650) SC SCH (08:41)
[2018-07-04] MEDS: SERTRALINE HCL 25 MG TABLET PO SCH (08:41)
--- NOTE | 2018-07-04 18:27 | IPN ---
DATE: 07/04/2018 SUBJECTIVE: Patient seen and examined in the room today. Patient has been a very poor historian. Could not answer questions appropriately. There was no event reported. OBJECTIVE: VITAL SIGNS: Temperature 98.2, pulse 64, respirations 20, blood pressure 135/82, pulse ox 97% on room air. GENERAL: Patient is alert, awake, not oriented. HEENT: Normocephalic, atraumatic, extraocular muscles grossly intact. CARDIOVASCULAR: Positive S1, S2 regular rate. LUNGS: Clear to auscultation bilaterally. ABDOMEN: Soft, nontender, bowel sounds are present. EXTREMITIES: No edema. LABS: Most recent lab data from 07/03/2018 show WBC 5.4, hemoglobin 12.8, hematocrit 37.4, platelet count 202, sodium 141, potassium 3.8, Chloride 107, carbon dioxide 26, BUN 27, creatinine 0.95, GFR 59.7, fasting glucose 158, calcium 8.4. ASSESSMENT AND PLAN: 1. Influenza infection status-post Tamiflu. 2. Severe dementia. Patient requires placement. financial services professional assisting on the case. Continue physical therapy. Patient may need rehabilitation. According to the history the patient has a history of one drink in the evening. 3. History of vasal vagal syncope. We will continue to monitor. 4. Hypertension. Blood pressure in the satisfactory range. Currently on Norvasc. 5. Myocardial infarction status-post stent placement in 2013. Currently on aspirin and Lipitor. 6. Anxiety/depression on Zoloft. 7. Gastroesophageal reflux disease on Pepcid. 8. DVT prophylaxis on Lovenox. MTDD
[2018-07-04] MEDS: amLODIPine 5 MG TAB PO SCH (20:00)
[2018-07-04] MEDS: ATORVASTATIN 20 MG TAB PO SCH (20:00)
[2018-07-04] MEDS: traZODone 50 MG TAB PO SCH (20:00)
[2018-07-05 02:00] VITALS: BP 121/87
[2018-07-05 06:00] VITALS: BP 127/60
[2018-07-05 10:00] VITALS: BP 136/69
[2018-07-05] MEDS: ASPIRIN 81 MG ENTERIC TAB PO SCH (11:19)
[2018-07-05] MEDS: FAMOTIDINE 20 MG TAB PO SCH ×2 (11:19→21:51)
[2018-07-05] MEDS: SERTRALINE HCL 25 MG TABLET PO SCH (11:20)
[2018-07-05] MEDS: ENOXAPARIN 30 MG/0.3 ML SYR (J1650) SC SCH (11:20)
[2018-07-05 14:00] VITALS: BP 136/76
--- NOTE | 2018-07-05 14:16 | IPNPDOC ---
Text Note Date of Service The patient was seen on 07/05/18. NOTE SUBJECTIVE: Patient is seen and examined in the room today. Patient is very poor historian. Could not answer questions appropriately. No event reported. OBJECTIVE: VITAL SIGNS: Listed below. GENERAL: Patient is alert, awake, not oriented. HEENT: Normocephalic, atraumatic, extraocular muscles grossly intact. CARDIOVASCULAR: Positive S1, S2 regular rate. LUNGS: Clear to auscultation bilaterally. ABDOMEN: Soft, nontender, bowel sounds are present. EXTREMITIES: No edema. LABS: Listed below. ASSESSMENT AND PLAN: #. Influenza infection - status-post Tamiflu. Continue physical therapy. Patient may need rehabilitation. #. Severe dementia. - Patient requires placement. human services professional is assisting on the case. #. History of vasal vagal syncope. - Continue to monitor. #. Hypertension. - Blood pressure in the satisfactory range. Currently on Norvasc. #. Myocardial infarction status-post stent placement in 2013. - Currently on aspirin and Lipitor. #. Anxiety/depression on Zoloft. #. Gastroesophageal reflux disease on Pepcid. #. DVT prophylaxis on Lovenox. VS,Fishbone, I+O VS, Fishbone, I+O Vital Signs Date Time Temp Pulse Resp B/P (MAP) Pulse Ox O2 Delivery O2 Flow Rate FiO2 07/05/18 10:00 97.1 75 18 136/69 (91) 99 06/29/18 17:13 Room Air I&O- Last 24 Hours up to 6 AM 07/05/18 06:00 Intake Total 1994 ml Output Total 0 ml Balance 1995 ml JUDI CHINCHILLA DO Jul 05, 2018 14:16
[2018-07-05 18:00] VITALS: BP 122/69
--- NOTE | 2018-07-05 21:06 | ECGEPIP ---
Stationary ECG Study [facility] Test Date: 2018-07-02 Pat Name: JERRY ELY Department: Room: [place] [address] Gender: F [employer]: : 1935 Requested By: Regina Varma Order Number: [id number] Reading MD: Shreya Blas Measurements Intervals [place] Rate: 59 P: 24 [place]: 159 QRS: -7 QRSD: 86 T: 7 QT: 433 QTc: 431 Interpretive Statements SINUS BRADYCARDIA MODERATE VOLTAGE CRITERIA FOR LVH, CONSIDER NORMAL VARIANT MINIMAL CHANGE SINCE 06/29/18 Electronically Signed On 07-05-2018 21:06:36 EDT by Shreya Blas
[2018-07-05] MEDS: ATORVASTATIN 20 MG TAB PO SCH (21:50)
[2018-07-05] MEDS: traZODone 50 MG TAB PO SCH (21:51)
[2018-07-05] MEDS: amLODIPine 5 MG TAB PO SCH (21:51)
[2018-07-05 22:00] VITALS: BP 137/66
[2018-07-06 02:00] VITALS: BP 108/55
[2018-07-06 06:00] VITALS: BP 143/71
[2018-07-06 06:28] LABS: HEMATOCRIT 34.7 % (36.0-47.0); HEMOGLOBIN 11.9 g/dl (12.0-15.5); MEAN CORPUSCULAR HGB CONC 34.3 g/dl (32.0-36.5); MEAN CORPUSCULAR VOLUME 87.4 fl (80.0-96.0); PLATELET COUNT, AUTOMATED 216 10^3/uL (150-450); RED BLOOD COUNT 3.97 10^6/uL (4.00-5.40); WHITE BLOOD COUNT 6.3 10^3/uL (4.0-10.0)
[2018-07-06 06:52] LABS: BLOOD UREA NITROGEN 24 MG/DL (7-18); CALCIUM LEVEL 8.4 MG/DL (8.8-10.2); CARBON DIOXIDE LEVEL 25 MEQ/L (21-32); CHLORIDE LEVEL 110 MEQ/L (98-107); CREATININE FOR GFR 0.84 MG/DL (0.55-1.30); GLOMERULAR FILTRATION RATE > 60.0 (>32); GLUCOSE, FASTING 105 MG/DL (70-100); MAGNESIUM LEVEL 1.9 MG/DL (1.8-2.4); POTASSIUM SERUM 3.7 MEQ/L (3.5-5.1); SODIUM LEVEL 142 MEQ/L (136-145)
[2018-07-06] MEDS: ASPIRIN 81 MG ENTERIC TAB PO SCH (08:43)
[2018-07-06] MEDS: FAMOTIDINE 20 MG TAB PO SCH ×2 (08:43→20:02)
[2018-07-06] MEDS: SERTRALINE HCL 25 MG TABLET PO SCH (08:44)
[2018-07-06] MEDS: ENOXAPARIN 30 MG/0.3 ML SYR (J1650) SC SCH (08:44)
[2018-07-06 10:00] VITALS: BP 131/65
[2018-07-06 14:00] VITALS: BP 117/58
--- NOTE | 2018-07-06 18:46 | IPNPDOC ---
Text Note Date of Service The patient was seen on 07/06/18. NOTE SUBJECTIVE: Patient is seen and examined in the room today. Patient does not have acute complaint. Patient still demonstrates sign of dementia. No event reported. OBJECTIVE: VITAL SIGNS: Listed below. GENERAL: Patient is alert, awake, not oriented. HEENT: Normocephalic, atraumatic, extraocular muscles grossly intact. CARDIOVASCULAR: Positive S1, S2 regular rate. LUNGS: Clear to auscultation bilaterally. ABDOMEN: Soft, nontender, bowel sounds are present. EXTREMITIES: No edema. LABS: Listed below. ASSESSMENT AND PLAN: #. Influenza infection - status-post Tamiflu. Continue physical therapy. Patient may need rehabilitation. #. Severe dementia. - Patient requires placement. health services manager is assisting on the case. # Grade 1 diastolic dysfunction. - No sign of fluid overload. #. History of vasal vagal syncope. - Continue to monitor. #. Hypertension. - Blood pressure in the satisfactory range. Currently on Norvasc. #. Myocardial infarction status-post stent placement in 2013. - Currently on aspirin and Lipitor. #. Anxiety/depression on Zoloft. #. Gastroesophageal reflux disease on Pepcid. #. DVT prophylaxis on Lovenox. VS,Fishbone, I+O VS, Fishbone, I+O Laboratory Tests 07/06/18 06:07 Red Blood Count 3.97 L, Mean Corpuscular Volume 87.4, Mean Corpuscular Hemoglobin 30.0, Mean Corpuscular Hemoglobin Concent 34.3, Red Cell Distribution Width 12.8, Calcium Level 8.4 L Vital Signs Date Time Temp Pulse Resp B/P (MAP) Pulse Ox O2 Delivery O2 Flow Rate FiO2 07/06/18 14:00 97.8 74 18 117/58 (77) 100 I&O- Last 24 Hours up to 6 AM 07/06/18 06:00 Intake Total 995 ml Output Total 0 ml Balance 995 ml JUDI CHINCHILLA DO Jul 06, 2018 18:46
[2018-07-06] MEDS: ATORVASTATIN 20 MG TAB PO SCH (20:02)
[2018-07-06] MEDS: traZODone 50 MG TAB PO SCH (20:02)
[2018-07-06] MEDS: amLODIPine 5 MG TAB PO SCH (20:02)
[2018-07-06 22:00] VITALS: BP 166/73
[2018-07-06 23:39] VITALS: BP 100/52
[2018-07-07 05:58] LABS: HEMATOCRIT 33.6 % (36.0-47.0); HEMOGLOBIN 11.6 g/dl (12.0-15.5); MEAN CORPUSCULAR HEMOGLOBIN 30.6 pg (27.0-33.0); MEAN CORPUSCULAR HGB CONC 34.5 g/dl (32.0-36.5); MEAN CORPUSCULAR VOLUME 88.7 fl (80.0-96.0); PLATELET COUNT, AUTOMATED 218 10^3/uL (150-450); RED BLOOD COUNT 3.79 10^6/uL (4.00-5.40); WHITE BLOOD COUNT 6.4 10^3/uL (4.0-10.0)
[2018-07-07 06:00] VITALS: BP 145/68
[2018-07-07 06:25] LABS: BLOOD UREA NITROGEN 23 MG/DL (7-18); CALCIUM LEVEL 8.3 MG/DL (8.8-10.2); CARBON DIOXIDE LEVEL 24 MEQ/L (21-32); CHLORIDE LEVEL 109 MEQ/L (98-107); CREATININE FOR GFR 0.81 MG/DL (0.55-1.30); GLOMERULAR FILTRATION RATE > 60.0 (>32); GLUCOSE, FASTING 102 MG/DL (70-100); POTASSIUM SERUM 3.5 MEQ/L (3.5-5.1); SODIUM LEVEL 143 MEQ/L (136-145)
[2018-07-07] MEDS: ASPIRIN 81 MG ENTERIC TAB PO SCH (08:45)
[2018-07-07] MEDS: SERTRALINE HCL 25 MG TABLET PO SCH (08:45)
[2018-07-07] MEDS: FAMOTIDINE 20 MG TAB PO SCH ×2 (08:45→21:16)
[2018-07-07] MEDS: ENOXAPARIN 30 MG/0.3 ML SYR (J1650) SC SCH (08:47)
[2018-07-07 14:00] VITALS: BP 120/66
[2018-07-07] MEDS: traZODone 50 MG TAB PO SCH (21:15)
[2018-07-07] MEDS: amLODIPine 5 MG TAB PO SCH (21:16)
[2018-07-07] MEDS: ATORVASTATIN 20 MG TAB PO SCH (21:16)
[2018-07-07 22:00] VITALS: BP 125/68
[2018-07-08 06:00] VITALS: BP 135/76
[2018-07-08 06:13] LABS: HEMATOCRIT 34.3 % (36.0-47.0); HEMOGLOBIN 11.6 g/dl (12.0-15.5); MEAN CORPUSCULAR HEMOGLOBIN 30.4 pg (27.0-33.0); MEAN CORPUSCULAR HGB CONC 33.8 g/dl (32.0-36.5); MEAN CORPUSCULAR VOLUME 89.8 fl (80.0-96.0); PLATELET COUNT, AUTOMATED 232 10^3/uL (150-450); RED BLOOD COUNT 3.82 10^6/uL (4.00-5.40); WHITE BLOOD COUNT 6.7 10^3/uL (4.0-10.0)
[2018-07-08 06:40] LABS: BLOOD UREA NITROGEN 23 MG/DL (7-18); CALCIUM LEVEL 8.4 MG/DL (8.8-10.2); CARBON DIOXIDE LEVEL 26 MEQ/L (21-32); CHLORIDE LEVEL 109 MEQ/L (98-107); CREATININE FOR GFR 0.81 MG/DL (0.55-1.30); GLOMERULAR FILTRATION RATE > 60.0 (>32); GLUCOSE, FASTING 99 MG/DL (70-100); POTASSIUM SERUM 3.6 MEQ/L (3.5-5.1); SODIUM LEVEL 143 MEQ/L (136-145)
[2018-07-08] MEDS: ASPIRIN 81 MG ENTERIC TAB PO SCH (08:51)
[2018-07-08] MEDS: SERTRALINE HCL 25 MG TABLET PO SCH (08:51)
[2018-07-08] MEDS: FAMOTIDINE 20 MG TAB PO SCH ×2 (08:51→20:35)
[2018-07-08] MEDS: ENOXAPARIN 30 MG/0.3 ML SYR (J1650) SC SCH (08:52)
[2018-07-08] MEDS: traZODone 50 MG TAB PO SCH (20:30)
[2018-07-08] MEDS: ATORVASTATIN 20 MG TAB PO SCH (20:34)
[2018-07-08] MEDS: amLODIPine 5 MG TAB PO SCH (20:35)
[2018-07-08 22:00] VITALS: BP 102/51
[2018-07-09 06:00] VITALS: BP 112/52
[2018-07-09 06:32] LABS: HEMATOCRIT 33.7 % (36.0-47.0); HEMOGLOBIN 11.4 g/dl (12.0-15.5); MEAN CORPUSCULAR HEMOGLOBIN 30.2 pg (27.0-33.0); MEAN CORPUSCULAR HGB CONC 33.8 g/dl (32.0-36.5); MEAN CORPUSCULAR VOLUME 89.2 fl (80.0-96.0); PLATELET COUNT, AUTOMATED 243 10^3/uL (150-450); RED BLOOD COUNT 3.78 10^6/uL (4.00-5.40); WHITE BLOOD COUNT 6.7 10^3/uL (4.0-10.0)
[2018-07-09 07:00] LABS: BLOOD UREA NITROGEN 21 MG/DL (7-18); CALCIUM LEVEL 8.4 MG/DL (8.8-10.2); CARBON DIOXIDE LEVEL 29 MEQ/L (21-32); CHLORIDE LEVEL 110 MEQ/L (98-107); CREATININE FOR GFR 0.86 MG/DL (0.55-1.30); GLOMERULAR FILTRATION RATE > 60.0 (>32); GLUCOSE, FASTING 99 MG/DL (70-100); MAGNESIUM LEVEL 2.1 MG/DL (1.8-2.4); POTASSIUM SERUM 3.8 MEQ/L (3.5-5.1); SODIUM LEVEL 145 MEQ/L (136-145)
[2018-07-09] MEDS: SERTRALINE HCL 25 MG TABLET PO SCH (08:57)
[2018-07-09] MEDS: ASPIRIN 81 MG ENTERIC TAB PO SCH (08:57)
[2018-07-09] MEDS: ENOXAPARIN 30 MG/0.3 ML SYR (J1650) SC SCH (08:57)
[2018-07-09] MEDS: FAMOTIDINE 20 MG TAB PO SCH ×2 (08:57→20:34)
[2018-07-09] MEDS: amLODIPine 5 MG TAB PO SCH (20:33)
[2018-07-09] MEDS: ATORVASTATIN 20 MG TAB PO SCH (20:33)
[2018-07-09] MEDS: traZODone 50 MG TAB PO SCH (20:33)
[2018-07-10 06:00] VITALS: BP 126/87
[2018-07-10 06:29] LABS: HEMATOCRIT 32.5 % (36.0-47.0); MEAN CORPUSCULAR HEMOGLOBIN 29.8 pg (27.0-33.0); MEAN CORPUSCULAR HGB CONC 33.8 g/dl (32.0-36.5); MEAN CORPUSCULAR VOLUME 88.1 fl (80.0-96.0); PLATELET COUNT, AUTOMATED 235 10^3/uL (150-450); RED BLOOD COUNT 3.69 10^6/uL (4.00-5.40); WHITE BLOOD COUNT 5.9 10^3/uL (4.0-10.0)
[2018-07-10 06:49] LABS: BLOOD UREA NITROGEN 20 MG/DL (7-18); CALCIUM LEVEL 8.1 MG/DL (8.8-10.2); CARBON DIOXIDE LEVEL 26 MEQ/L (21-32); CHLORIDE LEVEL 109 MEQ/L (98-107); GLOMERULAR FILTRATION RATE > 60.0 (>32); GLUCOSE, FASTING 100 MG/DL (70-100); POTASSIUM SERUM 3.4 MEQ/L (3.5-5.1); SODIUM LEVEL 142 MEQ/L (136-145)
[2018-07-10] MEDS: FAMOTIDINE 20 MG TAB PO SCH ×2 (10:37→21:51)
[2018-07-10] MEDS: ENOXAPARIN 30 MG/0.3 ML SYR (J1650) SC SCH (10:38)
[2018-07-10] MEDS: SERTRALINE HCL 25 MG TABLET PO SCH (10:38)
[2018-07-10] MEDS: ASPIRIN 81 MG ENTERIC TAB PO SCH (10:38)
[2018-07-10] MEDS: ATORVASTATIN 20 MG TAB PO SCH (21:50)
[2018-07-10] MEDS: traZODone 50 MG TAB PO SCH (21:51)
[2018-07-10 21:52] VITALS: BP 137/66
[2018-07-10] MEDS: amLODIPine 5 MG TAB PO SCH (21:52)
[2018-07-11 06:00] VITALS: BP 136/63
[2018-07-11 06:46] LABS: HEMATOCRIT 32.4 % (36.0-47.0); HEMOGLOBIN 11.2 g/dl (12.0-15.5); MEAN CORPUSCULAR HEMOGLOBIN 30.6 pg (27.0-33.0); MEAN CORPUSCULAR HGB CONC 34.6 g/dl (32.0-36.5); MEAN CORPUSCULAR VOLUME 88.5 fl (80.0-96.0); PLATELET COUNT, AUTOMATED 232 10^3/uL (150-450); RED BLOOD COUNT 3.66 10^6/uL (4.00-5.40); WHITE BLOOD COUNT 6.8 10^3/uL (4.0-10.0)
[2018-07-11 07:08] LABS: BLOOD UREA NITROGEN 20 MG/DL (7-18); CALCIUM LEVEL 8.3 MG/DL (8.8-10.2); CARBON DIOXIDE LEVEL 26 MEQ/L (21-32); CHLORIDE LEVEL 111 MEQ/L (98-107); CREATININE FOR GFR 0.82 MG/DL (0.55-1.30); GLOMERULAR FILTRATION RATE > 60.0 (>32); GLUCOSE, FASTING 99 MG/DL (70-100); POTASSIUM SERUM 3.6 MEQ/L (3.5-5.1); SODIUM LEVEL 144 MEQ/L (136-145)
[2018-07-11] MEDS: SERTRALINE HCL 25 MG TABLET PO SCH (09:15)
[2018-07-11] MEDS: FAMOTIDINE 20 MG TAB PO SCH (09:15)
[2018-07-11] MEDS: ENOXAPARIN 30 MG/0.3 ML SYR (J1650) SC SCH (09:16)
[2018-07-11] MEDS: ASPIRIN 81 MG ENTERIC TAB PO SCH (09:16)
--- NOTE | 2018-07-11 17:27 | DS.PDOC ---
Discharge Summary General Date of Admission Jun 29, 2018 at 16:00 Date of Discharge 07/11/18 Discharge Summary PROCEDURES PERFORMED DURING STAY: None. ADMITTING DIAGNOSES: 1. Altered mental status -likely 2/2 to toxic metabolic encephalopathy 2/2 to influenza 2. Hyperlipidemia 3. Hypertension 4. Anxiety / depression 5. GERD 6. MO s/p stent placement 7. Debility DISCHARGE DIAGNOSES: Acute metabolic encephalopathy secondary to influenza A infection, improved Influenza A infection status post treatment with Tamiflu Dementia Hypertension Myocardial infarction status post stent placement in 201314 Grade 1 diastolic dysfunction History of vasovagal syncope Anxiety/depression GERD COMPLICATIONS/CHIEF COMPLAINT: Influenza A. HISTORY OF PRESENT ILLNESS: The patient is a 82-year-old female was brought to the ER by family for concerns regarding increasing confusion, also noted to be febrile in the ER and tested positive for influenza A. HOSPITAL COURSE: Acute metabolic encephalopathy secondary to influenza A infection: -She was treated with Tamiflu -Mentation seems to be back to baseline -Patient has baseline dementia Influenza A infection: -Patient did not have any pneumonia on chest x-ray -She was treated with Tamiflu -Seems to be back to baseline -O2 saturations are normal on room air and she is afebrile Advanced dementia: -Currently plan is for senior living facility placement for ongoing physical therapy/occupational therapy Grade 1 diastolic dysfunction: -No evidence of fluid overload/congestive heart failure Hypertension: -Controlled on amlodipine Coronary artery disease/MO status post stent placement in the past: -Continue aspirin, Lipitor Anxiety/depression: -To Zoloft, when necessary lorazepam. Patient has not required the lorazepam during her hospital stay here. GERD: -Pepcid DISCHARGE MEDICATIONS: Please see below. ALLERGIES: Please see below. PHYSICAL EXAMINATION ON DISCHARGE: VITAL SIGNS: Please see below. GENERAL: Patient is lying in bed. No distress PERRLA CARDIOVASCULAR EXAMINATION: S1, S2 heard, no rubs or gallops RESPIRATORY EXAMINATION: Clear to auscultation bilaterally. No wheeze. No rhonchi. ABDOMINAL EXAMINATION: Soft, nontender NEUROLOGICAL EXAMINATION: Awake, alert. Oriented to self. LABORATORY DATA: Please see below. ACTIVITY: As tolerated. DIET: 2 gram sodium DISCHARGE PLAN: Plan is for discharge to senior living facility today DISPOSITION: long-term facility DISCHARGE INSTRUCTIONS: 1. Follow-up with primary care provider in one week ITEMS TO FOLLOWUP ON ON OUTPATIENT: 1. Follow-up on your influenza A infection DISCHARGE CONDITION: Stable. TIME SPENT ON DISCHARGE: 34 minutes. Vital Signs/I&Os Vital Signs Date Time Temp Pulse Resp B/P (MAP) Pulse Ox O2 Delivery O2 Flow Rate FiO2 07/11/18 06:00 98.9 71 17 136/63 (87) 98 I&O- Last 24 Hours up to 6 AM 07/11/18 06:00 Intake Total 600 ml Balance 600 ml Laboratory Data Labs 24H Laboratory Tests 2 07/11/18 06:32: Nucleated Red Blood Cells % (auto) 0.0, Anion Gap 7L, Glomerular Filtration Rate > 60.0, Blood Urea Nitrogen 20H, Creatinine 0.82, Sodium Level 144, Potassium Level 3.6, Chloride Level 111H, Carbon Dioxide Level 26, Calcium Level 8.3L, Magnesium Level 2.0 CBC/BMP Laboratory Tests 07/11/18 06:32 Red Blood Count 3.66 L, Mean Corpuscular Volume 88.5, Mean Corpuscular Hemoglobin 30.6, Mean Corpuscular Hemoglobin Concent 34.6, Red Cell Distribution Width 12.9, Calcium Level 8.3 L Discharge Medications Scheduled (Viactiv 500-500-40 mg-Unt-Mcg) 1 Chw Chw, 2 CHW PO DAILY, (Reported) Amlodipine Besylate (Amlodipine Besylate) 5 Mg Tab, 5 MG PO QHS, (Reported) Aspirin (Aspirin 81) 81 Mg Tab, 81 MG PO DAILY, (Reported) Atorvastatin Calcium (Atorvastatin Calcium) 80 Mg Tab, 80 MG PO QHS, (Reported) Carvedilol (Carvedilol) 12.5 Mg Tab, 12.5 MG PO BID, (Reported) Cholecalciferol (Vitamin D3) 5,000 Unit Tab, 5,000 UNIT PO DAILY, (Reported) Losartan Potassium (Losartan Potassium) 50 Mg Tab, 50 MG PO BID, (Reported) Ranitidine HCl (Ranitidine HCl) 150 Mg Tab, 1 TAB PO BID, (Reported) Sertraline Hcl (Zoloft) 50 Mg Tab, 75 MG PO DAILY, (Reported) Trazodone HCl (Trazodone HCl) 50 Mg Tab, 50 MG PO QHS, (Reported) Scheduled PRN Fluticasone Propionate (Fluticasone Propionate) 50 Mcg/Act Spr, 1 SPRAY NA DAILY PRN for NASAL CONGESTION, (Reported) Hydrocortisone Acetate (Anusol-Hc) 25 Mg Sup, 25 MG MA QID PRN for HEMORRHOIDS, (Reported) Loperamide Hcl (Imodium A-D) 2 Mg Tab, 2 MG PO PRN PRN for DIARRHEA, (Reported) Lorazepam (Lorazepam) 0.5 Mg Tab, 1-2 TABS PO Q4H PRN for ANXIETY/AGITATION, (Reported) Nitroglycerin (Nitrostat) 0.4 Mg Subl, 0.4 MG SL NITRO PRN for CHEST PAIN, (Reported) Allergies Coded Allergies: lisinopril (Verified Allergy, Severe, 07/05/18) KADI BOGGS MD Jul 11, 2018 13:12
== END 2018-07-11 13:30 | DRG 193 ==
LOC: EDBD 09:42 → M ED 09:42 → M ED INP 16:00 → M MSPAV 18:25
PROVIDERS: ADMIT Internal Medicine; ATTEND Internal Medicine
DX: J10.1 Influenza due to other identified influenza virus with other respiratory manifestations (principal); G93.41 Metabolic encephalopathy; E78.5 Hyperlipidemia, unspecified; I10 Essential (primary) hypertension; I25.2 Old myocardial infarction; Z95.2 Presence of prosthetic heart valve; F41.9 Anxiety disorder, unspecified; F32.9 Major depressive disorder, single episode, unspecified; K21.9 Gastro-esophageal reflux disease without esophagitis; F03.90 Unspecified dementia, unspecified severity, without behavioral disturbance, psychotic disturbance, mood disturbance, and anxiety; I25.10 Atherosclerotic heart disease of native coronary artery without angina pectoris; Z79.82 Long term (current) use of aspirin; Z79.899 Other long term (current) drug therapy; Z88.8 Allergy status to other drugs, medicaments and biological substances; R55 Syncope and collapse; I08.0 Rheumatic disorders of both mitral and aortic valves

== ENCOUNTER → 2018-07-12 | Outpatient (REF) | payer MEDICARE, OTHER ==
--- NOTE | 2018-07-11 17:53 | HPESKH ---
DATE OF ADMISSION: 07/12/2018 82-year-old white female with history of dementia. She had been living with her . states over the last several years her memory has been poor. She was brought into the hospital apparently confused at home. She was noted to have mild temperature elevation and influenza for which she was treated. She is over that illness currently and remains very confused. states the patient has not walked since she has been in the hospital. He is unsure if she is able to ambulate but was apparently able to ambulate prior to coming in. She is able to dress herself. Her executive function is poor. MEDICATIONS: - aspirin 81 mg - Zoloft 75 mg - amlodipine 5 mg - atorvastatin 80 mg - Pepcid 20 mg twice a day - trazodone 50 mg - fluticasone nasal spray - Tylenol PAST MEDICAL HISTORY Remote hysterectomy and cataract surgery. She has a history of dementia as above, diastolic dysfunction without congestive heart failure (CHF), hypertension, she had an myocardial infarction (DC) with stent in 2013 and continues on aspirin and a statin, history of anxiety, depression and gastroesophageal reflux disease. FAMILY HISTORY: Irrelevant. ALLERGIES: Chart lists LISINOPRIL, reaction unknown. REVIEW OF SYSTEMS The patient herself pretty much denies any symptoms. I think she has very low insight into her situation. PHYSICAL EXAMINATION Vital signs are stable as recorded. Blood pressure has been well managed. General appearance: Elderly female. She has a somewhat de ashen appearance. HEENT: Is unremarkable. Dentition is good. Carotids are normal. No bruits. No JVD. No cervical adenopathy. Heart: Was regular. No murmurs. Chest: Clear. Abdomen was benign. No masses or HSM. Extremities are warm peripherally without clubbing, cyanosis or edema. Neuro is grossly intact except for cognitive function. IMPRESSION/PLAN Dementia with functional capabilities as discussed above. Mild anemia. Hematocrit at 32.4. Hypertension/diastolic dysfunction without CHF. Coronary artery disease with stent and reported DC 2013. Incidentally her admission electrocardiogram did not show any evidence of old DC, possible LVH. Anxiety, depression. Gastroesophageal reflux disease. Will try to titrate down on her Pepcid. Mild anemia. Follow. Asymptomatic.
[~2018-07-12] MED LIST changes: +AMLO25TA PO; +AMLO5TAB6 PO; +ANUS25SU PR; +ASPI1TAB PO; +ATOR80TA59 PO; +BAYE325T12 PO; +FLUTISP; +IMOD2TAB16 PO; +LORA0.5T11 PO; +NITR4TASL SL; +RANI150T PO; +TAMI30CA PO; +TRAZ-160 PO; +VIAC8.5C PO; +VITA500055 PO; +ZOLO50TA PO; +[UNRECOGNIZED DRUG - CODE] PO
[2018-07-12 09:55] LABS: VITAMIN B12 LEVEL 420 PG/ML (247-911)
== END ==
LOC: SKLAB6 07:00
DX: D64.9 Anemia, unspecified (principal); R68.89 Other general symptoms and signs; Z11.3 Encounter for screening for infections with a predominantly sexual mode of transmission

== ENCOUNTER → 2018-07-20 | Outpatient (REF) | payer MEDICARE, OTHER ==
[~2018-07-20] MED LIST changes: -ASPI1TAB PO; +ASPI81TA26 PO
== END ==
LOC: SKLAB6 07:00
DX: D64.9 Anemia, unspecified (principal); I11.9 Hypertensive heart disease without heart failure; F03.90 Unspecified dementia, unspecified severity, without behavioral disturbance, psychotic disturbance, mood disturbance, and anxiety

== ENCOUNTER → 2018-07-24 | Outpatient (REF) | payer MEDICARE, OTHER ==
[2018-07-24 13:30] LABS: HEMATOCRIT 34.3 % (36.0-47.0); HEMOGLOBIN 11.3 g/dl (12.0-15.5); MEAN CORPUSCULAR HEMOGLOBIN 30.4 pg (27.0-33.0); MEAN CORPUSCULAR HGB CONC 32.9 g/dl (32.0-36.5); MEAN CORPUSCULAR VOLUME 92.2 fl (80.0-96.0); PLATELET COUNT, AUTOMATED 252 10^3/uL (150-450); RED BLOOD COUNT 3.72 10^6/uL (4.00-5.40); WHITE BLOOD COUNT 7.6 10^3/uL (4.0-10.0)
--- NOTE | 2018-07-26 16:49 | REP ---
Left foot four views History: Midfoot pain There is no acute fracture or dislocation. There is narrowing of the first metatarsal-phalangeal joint space. There is irregularity of the head of the first metatarsal and base of the first proximal phalange. The remaining joint spaces are normal in appearance. The bony structure is osteopenic. Impression: Degenerative change as described above. Electronically Signed by Gregg Baer MD 07/26/2018 04:40 P
== END ==
LOC: SKLAB6 13:21
DX: K62.5 Hemorrhage of anus and rectum (principal)

== ENCOUNTER → 2018-07-26 | Outpatient (CLI) | payer MEDICARE, OTHER | LOC: M RAD 08:00 | DX: M19.072 Primary osteoarthritis, left ankle and foot (principal); M85.872 Other specified disorders of bone density and structure, left ankle and foot ==

== ENCOUNTER → 2018-08-04 | Outpatient (REF) | payer MEDICARE, OTHER | LOC: SKLAB6 07:00 | DX: Z12.11 Encounter for screening for malignant neoplasm of colon (principal) ==

== ENCOUNTER → 2018-08-05 | Outpatient (REF) | payer MEDICARE, OTHER | LOC: SKLAB6 13:57 | DX: K62.5 Hemorrhage of anus and rectum (principal); E78.5 Hyperlipidemia, unspecified ==

== ENCOUNTER → 2018-12-04 | Outpatient (REF) | payer MEDICARE, OTHER ==
[~2018-12-04] MED LIST changes: +APAP325T4 PO; +BISA10SU27 PR; +DEPA1CAP PO; +FAMO20TA PO; -LORA0.5T11 PO; +LORA0.5T5 PO; +MILKSUS21 PO; +QUET1TAB7 PO; -SERT-155; +SERT50TA29; -TRAZ-160 PO; +TRAZ-252 PO; +VIAC1CHW PO; -VIAC8.5C PO; +VIACTIV 500-5001 CHW PO; +VITA500054 PO
[2018-12-04 12:37] LABS: BLOOD UREA NITROGEN 24 MG/DL (7-18); CALCIUM LEVEL 9.3 MG/DL (8.8-10.2); CARBON DIOXIDE LEVEL 29 MEQ/L (21-32); CHLORIDE LEVEL 107 MEQ/L (98-107); CREATININE FOR GFR 0.92 MG/DL (0.55-1.30); GLOMERULAR FILTRATION RATE > 60.0 (>32); GLUCOSE, FASTING 86 MG/DL (70-100); POTASSIUM SERUM 4.7 MEQ/L (3.5-5.1); SODIUM LEVEL 139 MEQ/L (136-145)
== END ==
LOC: SKLAB6 10:10
DX: I10 Essential (primary) hypertension (principal); F03.91 Unspecified dementia, unspecified severity, with behavioral disturbance

== ENCOUNTER → 2019-01-15 | Outpatient (REF) | payer MEDICARE, OTHER ==
[~2019-01-15] MED LIST changes: -APAP325T4 PO; -BISA10SU27 PR; -DEPA1CAP PO; -FAMO20TA PO; +LORA0.5T11 PO; -LORA0.5T5 PO; -MILKSUS21 PO; -QUET1TAB7 PO; +SERT-155; -SERT50TA29; -VIAC1CHW PO; -VITA500054 PO
[2019-01-15 07:36] LABS: HEMOGLOBIN 11.3 g/dl (12.0-15.5); MEAN CORPUSCULAR HEMOGLOBIN 30.6 pg (27.0-33.0); MEAN CORPUSCULAR HGB CONC 33.2 g/dl (32.0-36.5); MEAN CORPUSCULAR VOLUME 92.1 fl (80.0-96.0); PLATELET COUNT, AUTOMATED 171 10^3/uL (150-450); RED BLOOD COUNT 3.69 10^6/uL (4.00-5.40); WHITE BLOOD COUNT 6.4 10^3/uL (4.0-10.0)
[2019-01-15 08:00] LABS: ALBUMIN 3.1 GM/DL (3.2-5.2); BILIRUBIN,TOTAL 0.9 MG/DL (0.2-1.0); CALCIUM LEVEL 8.6 MG/DL (8.8-10.2); CREATININE FOR GFR 0.96 MG/DL (0.55-1.30); GLOMERULAR FILTRATION RATE 58.8 (>32); POTASSIUM SERUM 4.6 MEQ/L (3.5-5.1); TOTAL PROTEIN 6.6 GM/DL (6.4-8.2)
[2019-01-15 10:45] LABS: TOTAL 25(OH) VITAMIN D 43.3 NG/ML (30.0-100.0)
== END ==
LOC: SKLAB6 07:00
PROVIDERS: ATTEND Internal Medicine
DX: Z79.899 Other long term (current) drug therapy (principal)

== ENCOUNTER 2019-02-03 10:06 | Emergency (ER) | payer MEDICARE, OTHER ==
[~2019-02-03 10:06] MED LIST changes: -SERT-155; +SERT50TA29
[2019-02-03] MEDS ORDERED: NS 500 ML IV ONE (10:45)
[2019-02-03] MEDS ORDERED: ONDANSETRON 4MG/2ML VIAL (J2405) IV ONE (10:45)
--- NOTE | 2019-02-03 10:48 | REP ---
CHEST, SINGLE VIEW: Single view of the chest is performed and compared to prior study of 06/29/2018. There is mild cardiomegaly. There is calcification and tortuosity of the thoracic aorta. There is a small hiatal hernia. There is no acute infiltrate or pulmonary edema. IMPRESSION: No acute pulmonary disease. Electronically Signed by Ravin Mares MD 02/03/2019 04:52 P
--- NOTE | 2019-02-03 10:54 | REP ---
CT BRAIN WITHOUT CONTRAST: CT brain performed without IV contrast. Comparison made with prior study of 06/29/2018. There is moderate atrophy. There is periventricular small vessel ischemic change. 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 Findings are stable compared to the prior study. Basal ganglia calcifications are unchanged on the right. There is no acute hemorrhage or extra-axial fluid collection. There is no midline shift or mass effect. There are vascular calcifications in the carotid siphons. IMPRESSION: Stable chronic changes as discussed above with no acute intracranial hemorrhage, midline shift or mass effect. Electronically Signed by Ravin Mares MD 02/03/2019 04:52 P
[2019-02-03 10:59] LABS: BASO % 0.3 % (0.0-1.0); EOS # 0.1 10^3/uL (0.0-0.5); EOS % 1.2 % (0.0-3.0); HEMATOCRIT 33.2 % (36.0-47.0); HEMOGLOBIN 11.1 g/dl (12.0-15.5); LYMPH # 1.5 10^3/uL (1.5-5.0); LYMPH % 13.4 % (24.0-44.0); MEAN CORPUSCULAR HEMOGLOBIN 30.4 pg (27.0-33.0); MEAN CORPUSCULAR HGB CONC 33.4 g/dl (32.0-36.5); NEUTROPHILS # 8.2 10^3/uL (1.5-8.5); NEUTROPHILS % 75.6 % (36.0-66.0); PLATELET COUNT, AUTOMATED 212 10^3/uL (150-450); RED BLOOD COUNT 3.65 10^6/uL (4.00-5.40); WHITE BLOOD COUNT 10.9 10^3/uL (4.0-10.0)
[2019-02-03 11:40] LABS: ALBUMIN 3.1 GM/DL (3.2-5.2); ALT/SGPT 17 U/L (12-78); BILIRUBIN,DIRECT 0.3 MG/DL (0.0-0.2); BILIRUBIN,TOTAL 1.8 MG/DL (0.2-1.0); BLOOD UREA NITROGEN 27 MG/DL (7-18); CALCIUM LEVEL 9.2 MG/DL (8.8-10.2); CARBON DIOXIDE LEVEL 26 MEQ/L (21-32); CHLORIDE LEVEL 105 MEQ/L (98-107); CK-MB VALUE MASS < 1.0 NG/ML (<3.6); CPK CREATINE PHOSPHOKINASE 66 U/L (26-192); CREATININE FOR GFR 1.22 MG/DL (0.55-1.30); GLOMERULAR FILTRATION RATE 44.6 (>32); GLUCOSE, FASTING 160 MG/DL (70-100); LIPASE 95 U/L (73-393); MB/CK RELATIVE INDEX 1.52 (< OR =4); POTASSIUM SERUM 3.7 MEQ/L (3.5-5.1); SODIUM LEVEL 139 MEQ/L (136-145); TOTAL PROTEIN 7.1 GM/DL (6.4-8.2); TROPONIN I < 0.02 NG/ML (< 0.10)
[2019-02-03] MEDS ORDERED: VITA500054 PO (11:50)
[2019-02-03] MEDS ORDERED: FAMO20TA PO (11:50)
[2019-02-03] MEDS ORDERED: APAP325T4 PO (11:50)
[2019-02-03] MEDS ORDERED: BISA10SU27 PR (11:50)
[2019-02-03] MEDS ORDERED: DEPA1CAP PO (11:50)
[2019-02-03] MEDS ORDERED: QUET1TAB7 PO (11:50)
[2019-02-03] MEDS ORDERED: MILKSUS21 PO (11:50)
[2019-02-03] MEDS ORDERED: VIAC1CHW PO (11:50)
[2019-02-03] MEDS ORDERED: ISOVUE-370 76% 100ML VIAL (Q9967) As Ordered ONE (11:59)
[2019-02-03] MEDS ORDERED: MORPHINE 2 MG/ML 1ML VIAL (J2270) IV PRN (12:30)
--- NOTE | 2019-02-03 13:00 | REP ---
CT ANGIOGRAM CHEST: TECHNIQUE: Axial contrast enhanced images from the thoracic inlet to the upper abdomen using 100 mL Isovue 370 intravenous contrast material with multiplanar reformations. There is no CT evidence of pulmonary embolism. There is no thoracic aortic aneurysm or dissection. There is mild to moderate cardiomegaly. There is no pleural effusion. There appears to be a tiny amount of pericardial fluid or thickening. There is no mediastinal, hilar, or chest wall lymphadenopathy. There is a large hiatal hernia. Scattered fibroatelectatic changes are seen in the lungs. There is a calcified granuloma in the left apex. There are degenerative changes of the spine. There is moderate compression of T10, which appears old. There is slight compression of T6, also likely old. IMPRESSION: No evidence of pulmonary embolism or aortic dissection. Large hiatal hernia. Slight compression of T6 with mild to moderate compression of T10, likely old. Mild to moderate cardiomegaly. Electronically Signed by Ravin Mares MD 02/03/2019 05:13 P
--- NOTE | 2019-02-03 13:04 | REP ---
CT ABDOMEN/PELVIS WITH IV CONTRAST: TECHNIQUE: Axial contrast enhanced images from the lung bases to the pubic symphysis using 100 mL Isovue 370 intravenous contrast material with multiplanar reformations. Liver demonstrates a few calcified granulomas and several cysts. The largest cyst is in the lateral segment of the left lobe measuring 2.4 x 1.4 cm. Gallbladder is not well distended and not well evaluated. There is no definite biliary dilatation. The spleen is not enlarged. 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 Adrenals and pancreas otherwise appear unremarkable. There is a cyst of the mid right kidney measuring 9 mm. There is no hydronephrosis bilaterally. There are atherosclerotic calcifications of the abdominal aorta without aneurysm. There is no adenopathy. There is no free air or free fluid. Scattered diverticula are seen of the colon without acute diverticulitis. No pelvic mass is seen. Urinary bladder appears unremarkable. There are degenerative changes of the spine. IMPRESSION: No acute abnormalities. Several liver cysts and calcified granulomas. Right renal cyst. Scattered diverticula of the colon with acute diverticulitis. No free air or free fluid. No obstruction. Electronically Signed by Ravin Mares MD 02/03/2019 05:14 P
[2019-02-03 14:00] VITALS: BP 112/62
--- NOTE | 2019-02-03 14:13 | ECGEPIP ---
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
== END 2019-02-03 14:28 | disposition home or self-care (01) ==
LOC: M ED 10:06
DX: R55 Syncope and collapse (principal); I10 Essential (primary) hypertension; F03.90 Unspecified dementia, unspecified severity, without behavioral disturbance, psychotic disturbance, mood disturbance, and anxiety; K22.70 Barrett's esophagus without dysplasia; Z95.5 Presence of coronary angioplasty implant and graft; Z79.899 Other long term (current) drug therapy; Z79.82 Long term (current) use of aspirin; Z88.8 Allergy status to other drugs, medicaments and biological substances
CPT/HCPCS: 70450; 71045; 71275; 74177; 80048; 80076; 82550; 82553; 83605; 83690; 84443; 84484; 85025; 93005; 93041; 94760; 96361; 96374; 99284; J2405; Q9967

== ENCOUNTER → 2019-05-08 | Outpatient (REF) | payer MEDICARE, OTHER ==
[~2019-05-08] MED LIST changes: +APAP325T4 PO; +BISA10SU27 PR; +DEPA1CAP PO; +FAMO20TA PO; -LORA0.5T11 PO; +LORA0.5T5 PO; +MILKSUS21 PO; +QUET1TAB7 PO; +VIAC1CHW PO; +VITA500054 PO
--- NOTE | 2019-05-08 13:19 | REP ---
Right knee four views: There is mild joint space narrowing of the medial compartment. The lateral compartment is unremarkable. There is no sign rising to evaluate patellofemoral compartment. Mineralization is normal. There is no effusion. There are no calcifications or foreign bodies. Impression: Mild medial compartment joint space narrowing compatible with early osteoarthritis. Electronically Signed by Ravin Keller MD 05/08/2019 01:11 P
== END ==
LOC: SKLAB6 09:45
PROVIDERS: ATTEND Internal Medicine
DX: M25.461 Effusion, right knee (principal)

== ENCOUNTER → 2019-05-30 | Outpatient (REF) | payer MEDICARE, OTHER ==
[2019-05-30 08:58] LABS: BASO % 0.5 % (0.0-1.0); EOS # 0.1 10^3/uL (0.0-0.5); EOS % 1.3 % (0.0-3.0); HEMATOCRIT 35.2 % (36.0-47.0); HEMOGLOBIN 11.7 g/dl (12.0-15.5); LYMPH # 1.2 10^3/uL (1.5-5.0); LYMPH % 14.6 % (24.0-44.0); MEAN CORPUSCULAR HEMOGLOBIN 29.7 pg (27.0-33.0); MEAN CORPUSCULAR HGB CONC 33.2 g/dl (32.0-36.5); MEAN CORPUSCULAR VOLUME 89.3 fl (80.0-96.0); MONO # 0.8 10^3/uL (0.0-0.8); MONO % 9.3 % (0.0-5.0); NEUTROPHILS # 6.1 10^3/uL (1.5-8.5); NEUTROPHILS % 74.2 % (36.0-66.0); PLATELET COUNT, AUTOMATED 226 10^3/uL (150-450); RED BLOOD COUNT 3.94 10^6/uL (4.00-5.40); WHITE BLOOD COUNT 8.3 10^3/uL (4.0-10.0)
[2019-05-30 09:21] LABS: ALBUMIN 3.3 GM/DL (3.2-5.2); BILIRUBIN,TOTAL 1.6 MG/DL (0.2-1.0); CALCIUM LEVEL 8.8 MG/DL (8.8-10.2); CREATININE FOR GFR 0.98 MG/DL (0.55-1.30); GLOMERULAR FILTRATION RATE 57.4 (>32); POTASSIUM SERUM 4.1 MEQ/L (3.5-5.1); TOTAL PROTEIN 6.9 GM/DL (6.4-8.2)
--- NOTE | 2019-05-30 11:00 | REP ---
Clinical: Abdominal pain. Technique: Upright view of the chest with supine and upright views of the abdomen and pelvis. Findings: Upright view of the chest cannot exclude right basilar atelectasis and small right pleural effusion. No free air below diaphragm to suspect pneumoperitoneum. Supine and upright views of the abdomen and pelvis demonstrate a relatively nonspecific bowel gas pattern although enteritis cannot be excluded. There is no evidence for obstruction or perforation. Skeletal structures demonstrate age-related osteopenia and degenerative changes. Stable calcification in the left upper quadrant consistent with chronic splenic artery aneurysm. Impression: 1. Lung bases suggest right basilar atelectasis and small right pleural effusion. 2. Nonspecific bowel gas pattern although enteritis cannot be excluded. Electronically Signed by Ferdinand Wills MD 05/30/2019 10:52 A
== END ==
LOC: SKLAB6 09:45
PROVIDERS: ATTEND Internal Medicine
DX: Z79.899 Other long term (current) drug therapy (principal)

== ENCOUNTER → 2019-06-01 | Outpatient (REF) | payer MEDICARE, OTHER ==
[2019-05-30 14:13] LABS: APPEARANCE, URINE CLEAR (CLEAR); BACTERIA, URINE AUTO NEGATIVE (NEGATIVE); BILIRUBIN, URINE AUTO NEGATIVE (NEGATIVE); BLOOD, URINE BLOOD NEGATIVE (NEGATIVE); COLOR, URINE YELLOW (YELLOW); GLUCOSE, URINE (UA) AUTO NEGATIVE (NEGATIVE); KETONE, URINE AUTO TRACE mg/dL (NEGATIVE); LEUKOCYTE ESTERASE, URINE AUTO NEGATIVE (NEGATIVE); MUCUS, URINE SMALL (NEGATIVE); NITRITE, URINE AUTO NEGATIVE (NEGATIVE); PROTEIN, URINE AUTO NEGATIVE (NEGATIVE); RBC, URINE AUTO 3 /HPF (0-3); SPECIFIC GRAVITY URINE AUTO 1.019 (1.002-1.035); SQUAMOUS EPITHELIAL CELL UR AU 0 /HPF (0-6); UROBILINOGEN, URINE AUTO 0.2 mg/dL (0.0-2.0); WBC, URINE AUTO 1 /HPF (0-3)
[2019-05-30 14:36] LABS: INFLUENZA A AMPLIFICATION NEGATIVE (NEGATIVE); INFLUENZA B AMPLIFICATION NEGATIVE (NEGATIVE)
== END ==
LOC: SKLAB6 07:00
PROVIDERS: ATTEND Internal Medicine
DX: R33.9 Retention of urine, unspecified (principal); Z79.899 Other long term (current) drug therapy

== ENCOUNTER → 2019-06-01 | Outpatient (REF) | payer MEDICARE, OTHER ==
[2019-06-01 10:44] LABS: CALCIUM LEVEL 8.7 MG/DL (8.8-10.2); CREATININE FOR GFR 1.08 MG/DL (0.55-1.30); GLOMERULAR FILTRATION RATE 51.3 (>32); POTASSIUM SERUM 4.1 MEQ/L (3.5-5.1)
== END ==
LOC: SKLAB6 07:00
PROVIDERS: ATTEND Internal Medicine
DX: E78.5 Hyperlipidemia, unspecified (principal)

== ENCOUNTER → 2019-06-05 | Outpatient (REF) | payer MEDICARE, OTHER ==
[2019-06-05 11:48] LABS: CALCIUM LEVEL 8.8 MG/DL (8.8-10.2); CREATININE FOR GFR 1.02 MG/DL (0.55-1.30); GLOMERULAR FILTRATION RATE 54.8 (>32)
== END ==
LOC: SKLAB6 09:00
PROVIDERS: ATTEND Internal Medicine
DX: Z79.899 Other long term (current) drug therapy (principal)

== ENCOUNTER → 2019-06-06 | Outpatient (REF) | payer MEDICARE, OTHER ==
[2019-06-06 08:22] LABS: BLOOD UREA NITROGEN 35 MG/DL (7-18); CALCIUM LEVEL 8.7 MG/DL (8.8-10.2); CARBON DIOXIDE LEVEL 28 MEQ/L (21-32); CHLORIDE LEVEL 106 MEQ/L (98-107); CREATININE FOR GFR 0.91 MG/DL (0.55-1.30); GLOMERULAR FILTRATION RATE > 60.0 (>32); GLUCOSE, FASTING 109 MG/DL (70-100); POTASSIUM SERUM 4.4 MEQ/L (3.5-5.1); SODIUM LEVEL 140 MEQ/L (136-145)
== END ==
LOC: SKLAB6 07:00
PROVIDERS: ATTEND Internal Medicine
DX: Z79.899 Other long term (current) drug therapy (principal)

== ENCOUNTER → 2019-06-19 | Outpatient (REF) | payer MEDICARE, OTHER ==
[2019-06-19 13:21] LABS: CALCIUM LEVEL 8.6 MG/DL (8.8-10.2); CREATININE FOR GFR 1.09 MG/DL (0.55-1.30); GLOMERULAR FILTRATION RATE 50.8 (>32); POTASSIUM SERUM 4.2 MEQ/L (3.5-5.1)
== END ==
LOC: SKLAB6 10:00
PROVIDERS: ATTEND Internal Medicine
DX: Z79.899 Other long term (current) drug therapy (principal)

== ENCOUNTER → 2019-06-27 | Outpatient (REF) | payer MEDICARE, OTHER | LOC: SKLAB6 11:30 | PROVIDERS: ATTEND Internal Medicine | DX: R05 Cough (principal) ==

== ENCOUNTER → 2019-07-19 | Outpatient (REF) | payer MEDICARE, OTHER ==
[2019-07-19 09:21] LABS: HEMATOCRIT 32.8 % (36.0-47.0); HEMOGLOBIN 10.9 g/dl (12.0-15.5); MEAN CORPUSCULAR HEMOGLOBIN 29.5 pg (27.0-33.0); MEAN CORPUSCULAR HGB CONC 33.2 g/dl (32.0-36.5); MEAN CORPUSCULAR VOLUME 88.9 fl (80.0-96.0); PLATELET COUNT, AUTOMATED 246 10^3/uL (150-450); RED BLOOD COUNT 3.69 10^6/uL (4.00-5.40); WHITE BLOOD COUNT 7.6 10^3/uL (4.0-10.0)
[2019-07-19 09:47] LABS: ALBUMIN 2.6 GM/DL (3.2-5.2); BILIRUBIN,TOTAL 0.8 MG/DL (0.2-1.0); CALCIUM LEVEL 9.1 MG/DL (8.8-10.2); CHOLESTEROL RISK RATIO 3.325 (<5); CREATININE FOR GFR 1.23 MG/DL (0.55-1.30); GLOMERULAR FILTRATION RATE 44.2 (>32); POTASSIUM SERUM 3.5 MEQ/L (3.5-5.1); TOTAL PROTEIN 6.4 GM/DL (6.4-8.2)
[2019-07-19 10:49] LABS: TOTAL 25(OH) VITAMIN D 70.8 NG/ML (30.0-100.0)
== END ==
LOC: SKLAB6 07:00
PROVIDERS: ATTEND Internal Medicine
DX: I10 Essential (primary) hypertension (principal); Z86.79 Personal history of other diseases of the circulatory system; Z79.899 Other long term (current) drug therapy

== ENCOUNTER → 2019-08-16 | Outpatient (REF) | payer MEDICARE, OTHER ==
[2019-08-16 12:36] LABS: CALCIUM LEVEL 8.4 MG/DL (8.8-10.2); CREATININE FOR GFR 0.96 MG/DL (0.55-1.30); GLOMERULAR FILTRATION RATE 58.8 (>32); POTASSIUM SERUM 3.6 MEQ/L (3.5-5.1)
[2019-08-16 17:23] LABS: APPEARANCE, URINE CLEAR (CLEAR); BACTERIA, URINE AUTO NEGATIVE (NEGATIVE); BILIRUBIN, URINE AUTO NEGATIVE (NEGATIVE); BLOOD, URINE BLOOD NEGATIVE (NEGATIVE); COLOR, URINE YELLOW (YELLOW); GLUCOSE, URINE (UA) AUTO NEGATIVE (NEGATIVE); KETONE, URINE AUTO NEGATIVE (NEGATIVE); LEUKOCYTE ESTERASE, URINE AUTO 1+ (NEGATIVE); MUCUS, URINE SMALL (NEGATIVE); NITRITE, URINE AUTO NEGATIVE (NEGATIVE); PROTEIN, URINE AUTO NEGATIVE (NEGATIVE); RBC, URINE AUTO 3 /HPF (0-3); SPECIFIC GRAVITY URINE AUTO 1.014 (1.002-1.035); SQUAMOUS EPITHELIAL CELL UR AU 0 /HPF (0-6); UROBILINOGEN, URINE AUTO 0.2 mg/dL (0.0-2.0); WBC, URINE AUTO 6 /HPF (0-3)
== END ==
LOC: SKLAB6 08:00
PROVIDERS: ATTEND Internal Medicine
DX: R45.1 Restlessness and agitation (principal); F98.9 Unspecified behavioral and emotional disorders with onset usually occurring in childhood and adolescence; R33.9 Retention of urine, unspecified

== ENCOUNTER → 2019-09-11 | Outpatient (REF) | payer MEDICARE, OTHER ==
[2019-09-11 08:04] LABS: HEMATOCRIT 35.7 % (36.0-47.0); HEMOGLOBIN 11.5 g/dl (12.0-15.5); MEAN CORPUSCULAR HEMOGLOBIN 29.9 pg (27.0-33.0); MEAN CORPUSCULAR HGB CONC 32.2 g/dl (32.0-36.5); PLATELET COUNT, AUTOMATED 228 10^3/uL (150-450); RED BLOOD COUNT 3.84 10^6/uL (4.00-5.40)
[2019-09-11 08:33] LABS: APPEARANCE, URINE CLEAR (CLEAR); BACTERIA, URINE AUTO NEGATIVE (NEGATIVE); BILIRUBIN, URINE AUTO NEGATIVE (NEGATIVE); BLOOD, URINE BLOOD NEGATIVE (NEGATIVE); COLOR, URINE YELLOW (YELLOW); GLUCOSE, URINE (UA) AUTO NEGATIVE (NEGATIVE); KETONE, URINE AUTO NEGATIVE (NEGATIVE); LEUKOCYTE ESTERASE, URINE AUTO TRACE (NEGATIVE); MUCUS, URINE SMALL (NEGATIVE); NITRITE, URINE AUTO NEGATIVE (NEGATIVE); PROTEIN, URINE AUTO NEGATIVE (NEGATIVE); RBC, URINE AUTO 2 /HPF (0-3); SPECIFIC GRAVITY URINE AUTO 1.008 (1.002-1.035); SQUAMOUS EPITHELIAL CELL UR AU 0 /HPF (0-6); UROBILINOGEN, URINE AUTO 0.2 mg/dL (0.0-2.0); WBC, URINE AUTO 1 /HPF (0-3)
[2019-09-11 08:35] LABS: BLOOD UREA NITROGEN 15 MG/DL (7-18); CALCIUM LEVEL 8.8 MG/DL (8.8-10.2); CARBON DIOXIDE LEVEL 26 MEQ/L (21-32); CHLORIDE LEVEL 109 MEQ/L (98-107); CREATININE FOR GFR 0.94 MG/DL (0.55-1.30); GLOMERULAR FILTRATION RATE > 60.0 (>32); GLUCOSE, FASTING 88 MG/DL (70-100); POTASSIUM SERUM 4.3 MEQ/L (3.5-5.1); SODIUM LEVEL 143 MEQ/L (136-145)
== END ==
LOC: SKLAB6 06:00
PROVIDERS: ATTEND Internal Medicine
DX: R41.82 Altered mental status, unspecified (principal)

== ENCOUNTER → 2020-01-15 | Outpatient (REF) | payer MEDICARE, OTHER ==
[~2020-01-15] MED LIST changes: +AMLO1TAB24; +AMLO1TAB24 PO; -AMLO5TAB6; -AMLO5TAB6 PO
[2020-01-15 17:01] LABS: APPEARANCE, URINE CLEAR (CLEAR); BACTERIA, URINE AUTO 1+ (NEGATIVE); BILIRUBIN, URINE AUTO NEGATIVE (NEGATIVE); BLOOD, URINE BLOOD NEGATIVE (NEGATIVE); COLOR, URINE YELLOW (YELLOW); GLUCOSE, URINE (UA) AUTO NEGATIVE (NEGATIVE); KETONE, URINE AUTO NEGATIVE (NEGATIVE); LEUKOCYTE ESTERASE, URINE AUTO 2+ (NEGATIVE); MUCUS, URINE SMALL (NEGATIVE); NITRITE, URINE AUTO NEGATIVE (NEGATIVE); PROTEIN, URINE AUTO NEGATIVE (NEGATIVE); RBC, URINE AUTO 3 /HPF (0-3); SPECIFIC GRAVITY URINE AUTO 1.019 (1.002-1.035); SQUAMOUS EPITHELIAL CELL UR AU 1 /HPF (0-6); UROBILINOGEN, URINE AUTO 0.2 mg/dL (0.0-2.0); WBC, URINE AUTO 14 /HPF (0-3)
== END ==
LOC: SKLAB6 11:00
DX: F03.91 Unspecified dementia, unspecified severity, with behavioral disturbance (principal)

== ENCOUNTER → 2020-01-16 | Outpatient (REF) | payer MEDICARE, OTHER ==
[2020-01-16 07:01] LABS: MEAN CORPUSCULAR HEMOGLOBIN 30.5 pg (27.0-33.0); MEAN CORPUSCULAR HGB CONC 32.4 g/dl (32.0-36.5); MEAN CORPUSCULAR VOLUME 94.1 fl (80.0-96.0); PLATELET COUNT, AUTOMATED 218 10^3/uL (150-450); RED BLOOD COUNT 3.93 10^6/uL (4.00-5.40); WHITE BLOOD COUNT 6.4 10^3/uL (4.0-10.0)
[2020-01-16 07:27] LABS: ALBUMIN 3.2 GM/DL (3.2-5.2); BILIRUBIN,TOTAL 1.3 MG/DL (0.2-1.0); CALCIUM LEVEL 8.9 MG/DL (8.8-10.2); CREATININE FOR GFR 1.12 MG/DL (0.55-1.30); GLOMERULAR FILTRATION RATE 49.1 (>32); POTASSIUM SERUM 3.8 MEQ/L (3.5-5.1)
== END ==
LOC: SKLAB6 01-17 07:00
PROVIDERS: ATTEND Internal Medicine
DX: I25.10 Atherosclerotic heart disease of native coronary artery without angina pectoris (principal); I10 Essential (primary) hypertension; M81.0 Age-related osteoporosis without current pathological fracture; Z79.82 Long term (current) use of aspirin

== ENCOUNTER → 2020-02-27 | Outpatient (REF) | payer MEDICARE, OTHER ==
[~2020-02-27] MED LIST changes: -QUET1TAB7 PO; +QUET25TA3 PO
== END ==
LOC: SKLAB6 02-26 12:57 → EDSTATUS 04-03 07:02
PROVIDERS: ATTEND Internal Medicine
DX: Z20.828 Contact with and (suspected) exposure to other viral communicable diseases (principal)

== ENCOUNTER → 2020-03-05 | Outpatient (REF) | payer MEDICARE, OTHER | LOC: SKLAB6 08:00 | PROVIDERS: ATTEND Internal Medicine | DX: Z20.828 Contact with and (suspected) exposure to other viral communicable diseases (principal) ==

== ENCOUNTER → 2020-03-12 | Outpatient (REF) | payer MEDICARE, OTHER ==
[2020-03-12 16:04] LABS: INFLUENZA A AMPLIFICATION NEGATIVE (NEGATIVE); INFLUENZA B AMPLIFICATION NEGATIVE (NEGATIVE)
== END ==
LOC: SKLAB6 08:00
PROVIDERS: ATTEND Internal Medicine
DX: Z20.828 Contact with and (suspected) exposure to other viral communicable diseases (principal)
CPT/HCPCS: 87502; U0003

== ENCOUNTER → 2020-03-19 | Outpatient (REF) | payer MEDICARE, OTHER ==
[~2020-03-19] MED LIST changes: +QUET1TAB7 PO; -QUET25TA3 PO
== END ==
LOC: SKLAB6 10:00
PROVIDERS: ATTEND Internal Medicine
DX: Z20.828 Contact with and (suspected) exposure to other viral communicable diseases (principal)

== ENCOUNTER → 2020-03-26 | Outpatient (REF) | payer MEDICARE, OTHER ==
[2020-03-26 12:13] LABS: INFLUENZA A AMPLIFICATION NEGATIVE (NEGATIVE); INFLUENZA B AMPLIFICATION NEGATIVE (NEGATIVE)
== END ==
LOC: SKLAB6 12:25
PROVIDERS: ATTEND Internal Medicine
DX: Z20.828 Contact with and (suspected) exposure to other viral communicable diseases (principal)
CPT/HCPCS: 87502; U0003

== ENCOUNTER → 2020-04-02 | Outpatient (REF) | payer MEDICARE, OTHER | LOC: SKLAB6 09:00 | PROVIDERS: ATTEND Internal Medicine | DX: Z20.828 Contact with and (suspected) exposure to other viral communicable diseases (principal) ==

== ENCOUNTER → 2020-04-09 | Outpatient (REF) | payer MEDICARE, OTHER | LOC: SKLAB6 10:00 | PROVIDERS: ATTEND Internal Medicine | DX: Z20.828 Contact with and (suspected) exposure to other viral communicable diseases (principal) ==

== ENCOUNTER → 2020-04-16 | Outpatient (REF) | payer MEDICARE, OTHER | LOC: SKLAB6 10:00 | PROVIDERS: ATTEND Internal Medicine | DX: Z11.52 Encounter for screening for COVID-19 (principal) ==

== ENCOUNTER → 2020-04-23 | Outpatient (REF) | payer MEDICARE, OTHER | LOC: SKLAB6 10:00 | PROVIDERS: ATTEND Internal Medicine | DX: Z20.822 Contact with and (suspected) exposure to COVID-19 (principal) ==

== ENCOUNTER → 2020-04-30 | Outpatient (REF) | payer MEDICARE, OTHER ==
[~2020-04-30] MED LIST changes: -QUET1TAB7 PO; +QUET25TA3 PO
== END ==
LOC: SKLAB6 09:00
PROVIDERS: ATTEND Internal Medicine
DX: Z20.822 Contact with and (suspected) exposure to COVID-19 (principal)

== ENCOUNTER → 2020-05-07 | Outpatient (REF) | payer MEDICARE, OTHER ==
[~2020-05-07] MED LIST changes: +QUET1TAB7 PO; -QUET25TA3 PO
[2020-05-07 11:54] LABS: INFLUENZA A AMPLIFICATION NEGATIVE (NEGATIVE); INFLUENZA B AMPLIFICATION NEGATIVE (NEGATIVE)
== END ==
LOC: SKLAB6 09:00
PROVIDERS: ATTEND Internal Medicine
DX: Z20.822 Contact with and (suspected) exposure to COVID-19 (principal)
CPT/HCPCS: 87502; U0003

== ENCOUNTER → 2020-05-14 | Outpatient (REF) | payer MEDICARE, OTHER | LOC: SKLAB6 10:00 | PROVIDERS: ATTEND Internal Medicine | DX: Z20.822 Contact with and (suspected) exposure to COVID-19 (principal) ==

== ENCOUNTER → 2020-05-21 | Outpatient (REF) | payer MEDICARE, OTHER ==
[~2020-05-21] MED LIST changes: -QUET1TAB7 PO; +QUET25TA3 PO
== END ==
LOC: SKLAB6 09:00
PROVIDERS: ATTEND Internal Medicine
DX: Z20.822 Contact with and (suspected) exposure to COVID-19 (principal)

== ENCOUNTER → 2020-05-28 | Outpatient (REF) | payer MEDICARE, OTHER | LOC: SKLAB6 10:00 | PROVIDERS: ATTEND Internal Medicine | DX: Z20.822 Contact with and (suspected) exposure to COVID-19 (principal) ==

== ENCOUNTER → 2020-06-04 | Outpatient (REF) | payer MEDICARE, OTHER | LOC: SKLAB6 10:00 | PROVIDERS: ATTEND Internal Medicine | DX: Z20.822 Contact with and (suspected) exposure to COVID-19 (principal) ==

== ENCOUNTER → 2020-06-18 | Outpatient (REF) | payer MEDICARE, OTHER | LOC: SKLAB6 12:03 | PROVIDERS: ATTEND Internal Medicine | DX: Z20.822 Contact with and (suspected) exposure to COVID-19 (principal) ==

== ENCOUNTER → 2020-06-25 | Outpatient (REF) | payer MEDICARE, OTHER | LOC: SKLAB6 09:00 | PROVIDERS: ATTEND Internal Medicine | DX: Z20.822 Contact with and (suspected) exposure to COVID-19 (principal) ==

== ENCOUNTER → 2020-07-11 | Outpatient (REF) | payer MEDICARE, OTHER ==
[~2020-07-11] MED LIST changes: +MILK400S12 PO; -MILKSUS21 PO
== END ==
LOC: SKLAB6 10:00
PROVIDERS: ATTEND Internal Medicine
DX: Z20.822 Contact with and (suspected) exposure to COVID-19 (principal)

== ENCOUNTER → 2020-07-17 | Outpatient (REF) | payer MEDICARE, OTHER ==
[2020-07-17 09:50] LABS: HEMATOCRIT 35.8 % (36.0-47.0); HEMOGLOBIN 11.7 g/dl (12.0-15.5); MEAN CORPUSCULAR HEMOGLOBIN 30.5 pg (27.0-33.0); MEAN CORPUSCULAR HGB CONC 32.7 g/dl (32.0-36.5); MEAN CORPUSCULAR VOLUME 93.2 fl (80.0-96.0); PLATELET COUNT, AUTOMATED 192 10^3/uL (150-450); RED BLOOD COUNT 3.84 10^6/uL (4.00-5.40); WHITE BLOOD COUNT 5.3 10^3/uL (4.0-10.0)
[2020-07-17 10:23] LABS: ALBUMIN 3.1 GM/DL (3.2-5.2); ALT/SGPT 16 U/L (12-78); BLOOD UREA NITROGEN 25 MG/DL (7-18); CARBON DIOXIDE LEVEL 28 MEQ/L (21-32); CHLORIDE LEVEL 110 MEQ/L (98-107); CHOLESTEROL LEVEL 159 MG/DL (<200); CHOLESTEROL RISK RATIO 2.606 (<5); CREATININE FOR GFR 0.88 MG/DL (0.55-1.30); GLOMERULAR FILTRATION RATE > 60.0 (>32); GLUCOSE, FASTING 102 MG/DL (70-100); HDL CHOLESTEROL 61 MG/DL (>40); LDL CHOLESTEROL 78 MG/DL (<100); NON-HDL-C 98 MG/DL; POTASSIUM SERUM 4.4 MEQ/L (3.5-5.1); SODIUM LEVEL 143 MEQ/L (136-145); TOTAL PROTEIN 6.2 GM/DL (6.4-8.2); TRIGLYCERIDES LEVEL 99 MG/DL (<150)
[2020-07-17 10:31] LABS: TOTAL 25(OH) VITAMIN D 34.7 NG/ML (30.0-100.0)
== END ==
LOC: SKLAB6 07:00
PROVIDERS: ATTEND Internal Medicine
DX: F03.91 Unspecified dementia, unspecified severity, with behavioral disturbance (principal); Z79.899 Other long term (current) drug therapy

== ENCOUNTER → 2020-08-08 | Outpatient (REF) | payer MEDICARE, OTHER ==
[2020-08-08 10:23] LABS: HEMATOCRIT 38.8 % (36.0-47.0); HEMOGLOBIN 12.8 g/dl (12.0-15.5); MEAN CORPUSCULAR HEMOGLOBIN 30.6 pg (27.0-33.0); MEAN CORPUSCULAR VOLUME 92.8 fl (80.0-96.0); PLATELET COUNT, AUTOMATED 224 10^3/uL (150-450); RED BLOOD COUNT 4.18 10^6/uL (4.00-5.40); WHITE BLOOD COUNT 7.1 10^3/uL (4.0-10.0)
[2020-08-08 10:53] LABS: BLOOD UREA NITROGEN 23 MG/DL (7-18); CALCIUM LEVEL 9.8 MG/DL (8.8-10.2); CARBON DIOXIDE LEVEL 28 MEQ/L (21-32); CHLORIDE LEVEL 106 MEQ/L (98-107); CREATININE FOR GFR 0.94 MG/DL (0.55-1.30); GLOMERULAR FILTRATION RATE > 60.0 (>32); GLUCOSE, FASTING 203 MG/DL (70-100); POTASSIUM SERUM 4.1 MEQ/L (3.5-5.1); SODIUM LEVEL 141 MEQ/L (136-145)
== END ==
LOC: SKLAB6 08-07 13:00
PROVIDERS: ATTEND Internal Medicine
DX: R55 Syncope and collapse (principal)

== ENCOUNTER → 2021-01-05 | Outpatient (REF) | payer MEDICARE, OTHER ==
[~2021-01-05] MED LIST changes: +QUET1TAB17 PO; -QUET25TA3 PO
[2021-01-05 11:04] LABS: APPEARANCE, URINE CLEAR (CLEAR); BACTERIA, URINE AUTO NEGATIVE (NEGATIVE); BILIRUBIN, URINE AUTO NEGATIVE (NEGATIVE); BLOOD, URINE BLOOD NEGATIVE (NEGATIVE); COLOR, URINE YELLOW (YELLOW); GLUCOSE, URINE (UA) AUTO NEGATIVE (NEGATIVE); KETONE, URINE AUTO NEGATIVE (NEGATIVE); LEUKOCYTE ESTERASE, URINE AUTO NEGATIVE (NEGATIVE); NITRITE, URINE AUTO NEGATIVE (NEGATIVE); PROTEIN, URINE AUTO NEGATIVE (NEGATIVE); RBC, URINE AUTO 1 /HPF (0-3); SPECIFIC GRAVITY URINE AUTO 1.029 (1.002-1.035); SQUAMOUS EPITHELIAL CELL UR AU 0 /HPF (0-6); UROBILINOGEN, URINE AUTO 0.2 mg/dL (0.0-2.0); WBC, URINE AUTO 0 /HPF (0-3)
[2021-01-05 12:55] LABS: HEMATOCRIT 38.3 % (36.0-47.0); HEMOGLOBIN 12.7 g/dl (12.0-15.5); MEAN CORPUSCULAR HEMOGLOBIN 30.3 pg (27.0-33.0); MEAN CORPUSCULAR HGB CONC 33.2 g/dl (32.0-36.5); MEAN CORPUSCULAR VOLUME 91.4 fl (80.0-96.0); PLATELET COUNT, AUTOMATED 201 10^3/uL (150-450); RED BLOOD COUNT 4.19 10^6/uL (4.00-5.40); WHITE BLOOD COUNT 8.7 10^3/uL (4.0-10.0)
[2021-01-05 13:33] LABS: BLOOD UREA NITROGEN 22 MG/DL (7-18); CALCIUM LEVEL 9.5 MG/DL (8.8-10.2); CARBON DIOXIDE LEVEL 25 MEQ/L (21-32); CHLORIDE LEVEL 113 MEQ/L (98-107); CREATININE FOR GFR 1.09 MG/DL (0.55-1.30); GLOMERULAR FILTRATION RATE 50.5 (>32); GLUCOSE, FASTING 173 MG/DL (70-100); POTASSIUM SERUM 4.5 MEQ/L (3.5-5.1); SODIUM LEVEL 145 MEQ/L (136-145); TROPONIN I < 0.02 NG/ML (< 0.10)
--- NOTE | 2021-01-05 15:28 | REP ---
INDICATION: ABDOMINAL PAIN. COMPARISON: None. FINDINGS: The examination is nondiagnostic due to motion artifact and portable technique. IMPRESSION: Repeat examination is necessary. The examination is nondiagnostic. <Electronically signed by Marcelino Mcleod > 01/05/21 [id number]
--- NOTE | 2021-01-05 21:26 | ECGEPIP ---
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 No significant change compared with 02/03/2019. Electronically Signed on 01-05-2021 21:26:14 EDT by Jarad Roche
== END ==
LOC: SKLAB6 10:21
PROVIDERS: ATTEND Internal Medicine
DX: R41.89 Other symptoms and signs involving cognitive functions and awareness (principal); R10.9 Unspecified abdominal pain

== ENCOUNTER → 2021-01-22 | Outpatient (REF) | payer MEDICARE, OTHER ==
[2021-01-22 13:44] LABS: HEMATOCRIT 35.8 % (36.0-47.0); HEMOGLOBIN 11.9 g/dl (12.0-15.5); MEAN CORPUSCULAR HEMOGLOBIN 30.1 pg (27.0-33.0); MEAN CORPUSCULAR HGB CONC 33.2 g/dl (32.0-36.5); MEAN CORPUSCULAR VOLUME 90.4 fl (80.0-96.0); PLATELET COUNT, AUTOMATED 211 10^3/uL (150-450); RED BLOOD COUNT 3.96 10^6/uL (4.00-5.40); WHITE BLOOD COUNT 5.8 10^3/uL (4.0-10.0)
[2021-01-22 14:10] LABS: BILIRUBIN,TOTAL 1.1 MG/DL (0.2-1.0); CALCIUM LEVEL 8.9 MG/DL (8.8-10.2); CREATININE FOR GFR 0.99 MG/DL (0.55-1.30); GLOMERULAR FILTRATION RATE 56.5 (>32); POTASSIUM SERUM 3.7 MEQ/L (3.5-5.1); TOTAL PROTEIN 6.3 GM/DL (6.4-8.2)
[2021-01-22 14:18] LABS: TOTAL 25(OH) VITAMIN D 43.7 NG/ML (30.0-100.0)
== END ==
LOC: SKLAB6 07:00
PROVIDERS: ATTEND Internal Medicine
DX: I25.10 Atherosclerotic heart disease of native coronary artery without angina pectoris (principal); I10 Essential (primary) hypertension; Z79.82 Long term (current) use of aspirin

== ENCOUNTER → 2021-01-29 | Outpatient (REF) | payer MEDICARE, OTHER | LOC: SKLAB6 09:06 | PROVIDERS: ATTEND Internal Medicine | DX: Z20.822 Contact with and (suspected) exposure to COVID-19 (principal) ==

== ENCOUNTER → 2021-02-02 | Outpatient (REF) | payer MEDICARE, OTHER | LOC: SKLAB6 05:54 | PROVIDERS: ATTEND Internal Medicine | DX: Z20.822 Contact with and (suspected) exposure to COVID-19 (principal) ==

== ENCOUNTER → 2021-02-05 | Outpatient (REF) | payer MEDICARE, OTHER | LOC: SKLAB6 06:17 | PROVIDERS: ATTEND Internal Medicine | DX: Z20.822 Contact with and (suspected) exposure to COVID-19 (principal) ==

== ENCOUNTER → 2021-02-09 | Outpatient (REF) | payer MEDICARE, OTHER | LOC: SKLAB6 05:25 | PROVIDERS: ATTEND Internal Medicine | DX: Z20.822 Contact with and (suspected) exposure to COVID-19 (principal) ==

== ENCOUNTER → 2021-02-10 | Outpatient (REF) | payer MEDICARE, OTHER | LOC: SKLAB6 07:00 | PROVIDERS: ATTEND Internal Medicine | DX: U07.1 COVID-19 (principal); Z53.9 Procedure and treatment not carried out, unspecified reason ==

== ENCOUNTER → 2021-02-11 | Outpatient (REF) | payer MEDICARE, OTHER ==
[2021-02-11 10:08] LABS: HEMATOCRIT 41.2 % (36.0-47.0); HEMOGLOBIN 13.7 g/dl (12.0-15.5); MEAN CORPUSCULAR HEMOGLOBIN 29.9 pg (27.0-33.0); MEAN CORPUSCULAR HGB CONC 33.3 g/dl (32.0-36.5); PLATELET COUNT, AUTOMATED 233 10^3/uL (150-450); RED BLOOD COUNT 4.58 10^6/uL (4.00-5.40); WHITE BLOOD COUNT 8.2 10^3/uL (4.0-10.0)
[2021-02-11 10:36] LABS: CALCIUM LEVEL 9.5 MG/DL (8.8-10.2); CREATININE FOR GFR 1.05 MG/DL (0.55-1.30); GLOMERULAR FILTRATION RATE 52.8 (>32)
== END ==
LOC: SKLAB2 07:00
PROVIDERS: ATTEND Internal Medicine
DX: U07.1 COVID-19 (principal); Z79.899 Other long term (current) drug therapy

== ENCOUNTER → 2021-02-13 | Outpatient (REF) | payer MEDICARE, OTHER ==
[2021-02-13 10:13] LABS: HEMATOCRIT 38.7 % (36.0-47.0); HEMOGLOBIN 12.9 g/dl (12.0-15.5); MEAN CORPUSCULAR HGB CONC 33.3 g/dl (32.0-36.5); PLATELET COUNT, AUTOMATED 181 10^3/uL (150-450); WHITE BLOOD COUNT 7.1 10^3/uL (4.0-10.0)
[2021-02-13 10:27] LABS: CALCIUM LEVEL 8.9 MG/DL (8.8-10.2); CREATININE FOR GFR 1.08 MG/DL (0.55-1.30); GLOMERULAR FILTRATION RATE 51.1 (>32); POTASSIUM SERUM 3.6 MEQ/L (3.5-5.1)
== END ==
LOC: SKLAB2 08:24
PROVIDERS: ATTEND Internal Medicine
DX: U07.1 COVID-19 (principal); Z79.899 Other long term (current) drug therapy

== ENCOUNTER → 2021-02-16 | Outpatient (REF) | payer MEDICARE, OTHER ==
[2021-02-16 11:18] LABS: HEMATOCRIT 42.1 % (36.0-47.0); HEMOGLOBIN 14.1 g/dl (12.0-15.5); MEAN CORPUSCULAR HGB CONC 33.5 g/dl (32.0-36.5); MEAN CORPUSCULAR VOLUME 89.6 fl (80.0-96.0); PLATELET COUNT, AUTOMATED 251 10^3/uL (150-450); WHITE BLOOD COUNT 7.6 10^3/uL (4.0-10.0)
[2021-02-16 12:19] LABS: CALCIUM LEVEL 9.7 MG/DL (8.8-10.2); CREATININE FOR GFR 1.19 MG/DL (0.55-1.30); GLOMERULAR FILTRATION RATE 45.7 (>32); POTASSIUM SERUM 4.4 MEQ/L (3.5-5.1)
== END ==
LOC: SKLAB2 11:17
PROVIDERS: ATTEND Internal Medicine
DX: U07.1 COVID-19 (principal); Z79.899 Other long term (current) drug therapy

== ENCOUNTER → 2021-02-18 | Outpatient (REF) | payer MEDICARE, OTHER ==
[2021-02-18 08:56] LABS: HEMATOCRIT 38.5 % (36.0-47.0); HEMOGLOBIN 13.1 g/dl (12.0-15.5); MEAN CORPUSCULAR VOLUME 88.1 fl (80.0-96.0); PLATELET COUNT, AUTOMATED 221 10^3/uL (150-450); RED BLOOD COUNT 4.37 10^6/uL (4.00-5.40); WHITE BLOOD COUNT 4.7 10^3/uL (4.0-10.0)
[2021-02-18 09:05] LABS: CALCIUM LEVEL 8.9 MG/DL (8.8-10.2); CREATININE FOR GFR 0.96 MG/DL (0.55-1.30); GLOMERULAR FILTRATION RATE 58.5 (>32); POTASSIUM SERUM 4.1 MEQ/L (3.5-5.1)
== END ==
LOC: SKLAB2 08:33
PROVIDERS: ATTEND Internal Medicine
DX: U07.1 COVID-19 (principal); Z79.899 Other long term (current) drug therapy

== ENCOUNTER → 2021-02-20 | Outpatient (REF) | payer MEDICARE, OTHER ==
[2021-02-20 16:37] LABS: HEMATOCRIT 42.1 % (36.0-47.0); HEMOGLOBIN 13.9 g/dl (12.0-15.5); MEAN CORPUSCULAR HEMOGLOBIN 29.6 pg (27.0-33.0); MEAN CORPUSCULAR VOLUME 89.8 fl (80.0-96.0); PLATELET COUNT, AUTOMATED 242 10^3/uL (150-450); RED BLOOD COUNT 4.69 10^6/uL (4.00-5.40); WHITE BLOOD COUNT 6.2 10^3/uL (4.0-10.0)
[2021-02-20 16:58] LABS: CALCIUM LEVEL 9.9 MG/DL (8.8-10.2); CREATININE FOR GFR 1.01 MG/DL (0.55-1.30); GLOMERULAR FILTRATION RATE 55.2 (>32); POTASSIUM SERUM 4.6 MEQ/L (3.5-5.1)
== END ==
LOC: SKLAB2 09:00
PROVIDERS: ATTEND Internal Medicine
DX: U07.1 COVID-19 (principal); Z79.899 Other long term (current) drug therapy

== ENCOUNTER → 2021-07-23 | Outpatient (REF) | payer MEDICARE, OTHER ==
[~2021-07-23] MED LIST changes: +LOSA50TA28 PO; -LOSA50TA88 PO
[2021-07-23 14:43] LABS: HEMATOCRIT 41.8 % (36.0-47.0); HEMOGLOBIN 14.3 g/dl (12.0-15.5); MEAN CORPUSCULAR HEMOGLOBIN 31.4 pg (27.0-33.0); MEAN CORPUSCULAR HGB CONC 34.2 g/dl (32.0-36.5); MEAN CORPUSCULAR VOLUME 91.9 fl (80.0-96.0); PLATELET COUNT, AUTOMATED 187 10^3/uL (150-450); RED BLOOD COUNT 4.55 10^6/uL (4.00-5.40); WHITE BLOOD COUNT 5.6 10^3/uL (4.0-10.0)
[2021-07-23 15:18] LABS: ALBUMIN 3.6 GM/DL (3.2-5.2); BILIRUBIN,TOTAL 1.2 MG/DL (0.2-1.0); CALCIUM LEVEL 8.6 MG/DL (8.8-10.2); CHOLESTEROL RISK RATIO 2.483 (<5); GLOMERULAR FILTRATION RATE 55.8 (>32); TOTAL PROTEIN 7.2 GM/DL (6.4-8.2)
== END ==
LOC: SKLAB6 07:00
PROVIDERS: ATTEND Internal Medicine
DX: I25.10 Atherosclerotic heart disease of native coronary artery without angina pectoris (principal); I10 Essential (primary) hypertension; Z79.82 Long term (current) use of aspirin

== ENCOUNTER 2021-08-24 04:23 | Emergency (ER) | payer MEDICARE, OTHER ==
[~2021-08-24] VITALS: Ht 167.6 cm; Wt 74.3 kg
[2021-08-24 09:16] VITALS: BP 142/80
== END 2021-08-24 12:12 | disposition home or self-care (01) ==
LOC: M ED 04:23
DX: S92.512A Displaced fracture of proximal phalanx of left lesser toe(s), initial encounter for closed fracture (principal); W01.0XXA Fall on same level from slipping, tripping and stumbling without subsequent striking against object, initial encounter; I10 Essential (primary) hypertension; D64.9 Anemia, unspecified; Z95.5 Presence of coronary angioplasty implant and graft; Z86.79 Personal history of other diseases of the circulatory system; Z88.8 Allergy status to other drugs, medicaments and biological substances; Z79.899 Other long term (current) drug therapy

== ENCOUNTER → 2022-01-21 | Outpatient (REF) | payer MEDICARE, OTHER ==
[2022-01-21 10:01] LABS: HEMATOCRIT 38.7 % (36.0-47.0); HEMOGLOBIN 12.9 g/dl (12.0-15.5); MEAN CORPUSCULAR HEMOGLOBIN 31.2 pg (27.0-33.0); MEAN CORPUSCULAR HGB CONC 33.3 g/dl (32.0-36.5); MEAN CORPUSCULAR VOLUME 93.7 fl (80.0-96.0); PLATELET COUNT, AUTOMATED 232 10^3/uL (150-450); RED BLOOD COUNT 4.13 10^6/uL (4.00-5.40); WHITE BLOOD COUNT 7.8 10^3/uL (4.0-10.0)
[2022-01-21 10:35] LABS: ALBUMIN 3.5 GM/DL (3.2-5.2); BILIRUBIN,TOTAL 1.7 MG/DL (0.2-1.0); CALCIUM LEVEL 9.1 MG/DL (8.8-10.2); CREATININE FOR GFR 1.16 MG/DL (0.55-1.30); GLOMERULAR FILTRATION RATE 46.9 (>32); POTASSIUM SERUM 4.1 MEQ/L (3.5-5.1); TOTAL PROTEIN 6.9 GM/DL (6.4-8.2)
[2022-01-21 13:25] LABS: TOTAL 25(OH) VITAMIN D 37.8 NG/ML (30.0-100.0)
== END ==
LOC: SKLAB6 07:00
PROVIDERS: ATTEND Internal Medicine
DX: I10 Essential (primary) hypertension (principal); I25.10 Atherosclerotic heart disease of native coronary artery without angina pectoris; Z79.82 Long term (current) use of aspirin

== ENCOUNTER → 2022-03-25 | Outpatient (REF) | payer MEDICARE, OTHER ==
[2022-03-25 16:02] LABS: HEMATOCRIT 38.8 % (36.0-47.0); HEMOGLOBIN 12.3 g/dl (12.0-15.5); MEAN CORPUSCULAR HEMOGLOBIN 30.4 pg (27.0-33.0); MEAN CORPUSCULAR HGB CONC 31.7 g/dl (32.0-36.5); PLATELET COUNT, AUTOMATED 115 10^3/uL (150-450); RED BLOOD COUNT 4.04 10^6/uL (4.00-5.40); WHITE BLOOD COUNT 6.6 10^3/uL (4.0-10.0)
[2022-03-25 16:17] LABS: ALBUMIN 3.2 G/DL (3.2-5.2); ALKALINE PHOSPHATASE 83 U/L (46-116); ALT/SGPT 11 U/L (7.0-40); AST/SGOT 15 U/L (<34); BILIRUBIN,TOTAL 1.4 MG/DL (0.3-1.2); BLOOD UREA NITROGEN 22 MG/DL (9-23); CALCIUM LEVEL 8.6 MG/DL (8.3-10.6); CARBON DIOXIDE LEVEL 26 MMOL/L (20-31); CHLORIDE LEVEL 104 MMOL/L (98-107); CREATININE FOR GFR 0.92 MG/DL (0.55-1.30); GLOMERULAR FILTRATION RATE > 60.0 (>32); GLUCOSE, FASTING 101 MG/DL (74-106); POTASSIUM SERUM 3.8 MMOL/L (3.5-5.1); SODIUM LEVEL 139 MMOL/L (136-145); TOTAL PROTEIN 6.6 G/DL (5.7-8.2)
== END ==
LOC: SKLAB6 13:00
PROVIDERS: ATTEND Internal Medicine
DX: U07.1 COVID-19 (principal); Z79.899 Other long term (current) drug therapy

== ENCOUNTER 2022-03-28 11:47 | Emergency (ER) | payer MEDICARE, OTHER ==
[~2022-03-28] VITALS: Ht 157.5 cm; Wt 65.1 kg
[2022-03-28 12:17] VITALS: BP 136/69
[2022-03-28 12:34] LABS: BASO % 0.4 % (0.0-1.0); EOS # 0.2 10^3/uL (0.0-0.5); HEMATOCRIT 40.7 % (36.0-47.0); HEMOGLOBIN 13.5 g/dl (12.0-15.5); LYMPH # 1.7 10^3/uL (1.5-5.0); LYMPH % 31.5 % (24.0-44.0); MEAN CORPUSCULAR HEMOGLOBIN 30.3 pg (27.0-33.0); MEAN CORPUSCULAR HGB CONC 33.2 g/dl (32.0-36.5); MEAN CORPUSCULAR VOLUME 91.3 fl (80.0-96.0); MONO # 0.6 10^3/uL (0.0-0.8); MONO % 11.7 % (2.0-8.0); NEUTROPHILS # 2.8 10^3/uL (1.5-8.5); NEUTROPHILS % 52.2 % (36.0-66.0); PLATELET COUNT, AUTOMATED 247 10^3/uL (150-450); RED BLOOD COUNT 4.46 10^6/uL (4.00-5.40); WHITE BLOOD COUNT 5.3 10^3/uL (4.0-10.0)
[2022-03-28] MEDS ORDERED: NS 1,000 ML IV ONE (12:35)
[2022-03-28 12:45] LABS: ALBUMIN 3.2 G/DL (3.2-5.2); ALKALINE PHOSPHATASE 81 U/L (46-116); ALT/SGPT 30 U/L (7.0-40); AST/SGOT 41 U/L (<34); BILIRUBIN,TOTAL 1.3 MG/DL (0.3-1.2); BLOOD UREA NITROGEN 24 MG/DL (9-23); CALCIUM LEVEL 8.8 MG/DL (8.3-10.6); CARBON DIOXIDE LEVEL 20 MMOL/L (20-31); CHLORIDE LEVEL 110 MMOL/L (98-107); CREATININE FOR GFR 0.93 MG/DL (0.55-1.30); GLOMERULAR FILTRATION RATE > 60.0 (>32); GLUCOSE, FASTING 126 MG/DL (74-106); POTASSIUM SERUM 4.5 MMOL/L (3.5-5.1); SODIUM LEVEL 142 MMOL/L (136-145); TOTAL PROTEIN 6.8 G/DL (5.7-8.2)
[2022-03-28 13:18] LABS: RSV AMPLIFICATION NEGATIVE (NEGATIVE)
== END 2022-03-28 15:30 | disposition home or self-care (01) ==
LOC: EDBD 11:47 → M ED 11:47
DX: U07.1 COVID-19 (principal); E86.0 Dehydration; I25.2 Old myocardial infarction; K21.9 Gastro-esophageal reflux disease without esophagitis; F41.9 Anxiety disorder, unspecified; F03.90 Unspecified dementia, unspecified severity, without behavioral disturbance, psychotic disturbance, mood disturbance, and anxiety; Z88.8 Allergy status to other drugs, medicaments and biological substances; Z79.82 Long term (current) use of aspirin; Z79.811 Long term (current) use of aromatase inhibitors; Z79.899 Other long term (current) drug therapy

== ENCOUNTER → 2022-03-29 | Outpatient (REF) | payer MEDICARE, OTHER ==
[2022-03-29 08:14] LABS: HEMATOCRIT 36.3 % (36.0-47.0); MEAN CORPUSCULAR HEMOGLOBIN 30.5 pg (27.0-33.0); MEAN CORPUSCULAR HGB CONC 33.1 g/dl (32.0-36.5); MEAN CORPUSCULAR VOLUME 92.1 fl (80.0-96.0); PLATELET COUNT, AUTOMATED 222 10^3/uL (150-450); RED BLOOD COUNT 3.94 10^6/uL (4.00-5.40); WHITE BLOOD COUNT 5.4 10^3/uL (4.0-10.0)
[2022-03-29 08:38] LABS: ALBUMIN 2.8 G/DL (3.2-5.2); ALKALINE PHOSPHATASE 75 U/L (46-116); ALT/SGPT 29 U/L (7.0-40); AST/SGOT 33 U/L (<34); BILIRUBIN,TOTAL 1.1 MG/DL (0.3-1.2); BLOOD UREA NITROGEN 19 MG/DL (9-23); CALCIUM LEVEL 8.3 MG/DL (8.3-10.6); CARBON DIOXIDE LEVEL 20 MMOL/L (20-31); CHLORIDE LEVEL 111 MMOL/L (98-107); CREATININE FOR GFR 0.82 MG/DL (0.55-1.30); GLOMERULAR FILTRATION RATE > 60.0 (>32); GLUCOSE, FASTING 87 MG/DL (74-106); POTASSIUM SERUM 3.9 MMOL/L (3.5-5.1); SODIUM LEVEL 141 MMOL/L (136-145); TOTAL PROTEIN 6.2 G/DL (5.7-8.2)
== END ==
LOC: SKLAB6 07:00
PROVIDERS: ATTEND Internal Medicine
DX: U07.1 COVID-19 (principal); Z79.899 Other long term (current) drug therapy

== ENCOUNTER → 2022-04-01 | Outpatient (REF) | payer MEDICARE, OTHER | LOC: SKLAB6 07:00 | PROVIDERS: ATTEND Internal Medicine | DX: Z53.8 Procedure and treatment not carried out for other reasons (principal) ==

== ENCOUNTER → 2022-07-22 | Outpatient (REF) | payer MEDICARE, OTHER ==
[~2022-07-22] MED LIST changes: +FLUT50SP17; -FLUTISP
[2022-07-22 07:41] LABS: HEMATOCRIT 37.8 % (36.0-47.0); HEMOGLOBIN 12.3 g/dl (12.0-15.5); MEAN CORPUSCULAR HEMOGLOBIN 30.4 pg (27.0-33.0); MEAN CORPUSCULAR HGB CONC 32.5 g/dl (32.0-36.5); MEAN CORPUSCULAR VOLUME 93.6 fl (80.0-96.0); PLATELET COUNT, AUTOMATED 222 10^3/uL (150-450); RED BLOOD COUNT 4.04 10^6/uL (4.00-5.40)
[2022-07-22 08:07] LABS: ALBUMIN 3.2 G/DL (3.2-5.2); BILIRUBIN,TOTAL 1.1 MG/DL (0.3-1.2); CHOLESTEROL RISK RATIO 3.71 (<5); CREATININE FOR GFR 0.96 MG/DL (0.55-1.30); GLOMERULAR FILTRATION RATE 58.4 (>32); HDL CHOLESTEROL 55.7 MG/DL (>40); LDL CHOLESTEROL 125.1 MG/DL (<100); NON-HDL-C 151.3 MG/DL; POTASSIUM SERUM 4.3 MMOL/L (3.5-5.1); TOTAL PROTEIN 6.1 G/DL (5.7-8.2)
[2022-07-22 08:08] LABS: TOTAL 25(OH) VITAMIN D 29.3 NG/ML (20.0-100.0)
== END ==
LOC: SKLAB6 07:00
PROVIDERS: ATTEND Internal Medicine
DX: E78.5 Hyperlipidemia, unspecified (principal); I10 Essential (primary) hypertension; I25.10 Atherosclerotic heart disease of native coronary artery without angina pectoris; Z79.82 Long term (current) use of aspirin

== ENCOUNTER → 2022-09-16 | Outpatient (REF) | payer MEDICARE, OTHER ==
[2022-09-16 08:00] LABS: HEMATOCRIT 36.5 % (36.0-47.0); HEMOGLOBIN 12.2 g/dl (12.0-15.5); MEAN CORPUSCULAR HEMOGLOBIN 30.7 pg (27.0-33.0); MEAN CORPUSCULAR HGB CONC 33.4 g/dl (32.0-36.5); MEAN CORPUSCULAR VOLUME 91.7 fl (80.0-96.0); PLATELET COUNT, AUTOMATED 255 10^3/uL (150-450); RED BLOOD COUNT 3.98 10^6/uL (4.00-5.40); WHITE BLOOD COUNT 5.6 10^3/uL (4.0-10.0)
[2022-09-16 08:25] LABS: ALBUMIN 3.1 G/DL (3.2-5.2); ALKALINE PHOSPHATASE 96 U/L (46-116); ALT/SGPT 12 U/L (7.0-40); AST/SGOT 9 U/L (<34); BILIRUBIN,TOTAL 0.9 MG/DL (0.3-1.2); BLOOD UREA NITROGEN 25 MG/DL (9-23); CALCIUM LEVEL 8.4 MG/DL (8.3-10.6); CARBON DIOXIDE LEVEL 26 MMOL/L (20-31); CHLORIDE LEVEL 108 MMOL/L (98-107); CREATININE FOR GFR 0.92 MG/DL (0.55-1.30); GLOMERULAR FILTRATION RATE > 60.0 (>32); GLUCOSE, FASTING 87 MG/DL (74-106); POTASSIUM SERUM 4.1 MMOL/L (3.5-5.1); SODIUM LEVEL 141 MMOL/L (136-145); TOTAL PROTEIN 6.3 G/DL (5.7-8.2)
== END ==
LOC: SKLAB6 07:00
PROVIDERS: ATTEND Internal Medicine
DX: U07.1 COVID-19 (principal); Z79.899 Other long term (current) drug therapy

== ENCOUNTER → 2022-11-16 | Outpatient (REF) | payer MEDICARE, OTHER | LOC: SKLAB6 12:58 | PROVIDERS: ATTEND Internal Medicine | DX: M25.561 Pain in right knee (principal); M25.551 Pain in right hip ==

== ENCOUNTER → 2023-01-20 | Outpatient (REF) | payer MEDICARE, OTHER ==
[2023-01-20 07:42] LABS: HEMATOCRIT 39.1 % (36.0-47.0); HEMOGLOBIN 13.2 g/dl (12.0-15.5); MEAN CORPUSCULAR HEMOGLOBIN 31.1 pg (27.0-33.0); MEAN CORPUSCULAR HGB CONC 33.8 g/dl (32.0-36.5); MEAN CORPUSCULAR VOLUME 92.2 fl (80.0-96.0); PLATELET COUNT, AUTOMATED 226 10^3/uL (150-450); RED BLOOD COUNT 4.24 10^6/uL (4.00-5.40); WHITE BLOOD COUNT 6.2 10^3/uL (4.0-10.0)
[2023-01-20 08:05] LABS: ALBUMIN 3.4 G/DL (3.2-5.2); ALKALINE PHOSPHATASE 79 U/L (46-116); ALT/SGPT 15 U/L (7.0-40); AST/SGOT 14 U/L (<34); BLOOD UREA NITROGEN 27 MG/DL (9-23); CALCIUM LEVEL 8.7 MG/DL (8.3-10.6); CARBON DIOXIDE LEVEL 28 MMOL/L (20-31); CHLORIDE LEVEL 106 MMOL/L (98-107); CREATININE FOR GFR 0.89 MG/DL (0.55-1.30); GLOMERULAR FILTRATION RATE > 60.0 (>32); GLUCOSE, FASTING 105 MG/DL (74-106); POTASSIUM SERUM 4.2 MMOL/L (3.5-5.1); SODIUM LEVEL 139 MMOL/L (136-145); TOTAL PROTEIN 6.6 G/DL (5.7-8.2)
[2023-01-20 08:08] LABS: TOTAL 25(OH) VITAMIN D 35.4 NG/ML (20.0-100.0)
== END ==
LOC: SKLAB6 07:00
PROVIDERS: ATTEND Internal Medicine
DX: I10 Essential (primary) hypertension (principal); I25.10 Atherosclerotic heart disease of native coronary artery without angina pectoris; Z79.82 Long term (current) use of aspirin

== ENCOUNTER → 2023-06-01 | Outpatient (REF) | payer MEDICARE, OTHER ==
[~2023-06-01] MED LIST changes: -FLUT50SP17; +FLUTISP
[2023-06-01 11:42] LABS: BASO % 0.7 % (0.0-1.0); EOS # 0.2 10^3/uL (0.0-0.5); EOS % 3.9 % (0.0-3.0); HEMATOCRIT 38.2 % (36.0-47.0); HEMOGLOBIN 12.7 g/dl (12.0-15.5); LYMPH # 1.5 10^3/uL (1.5-5.0); LYMPH % 26.9 % (24.0-44.0); MEAN CORPUSCULAR HGB CONC 33.2 g/dl (32.0-36.5); MEAN CORPUSCULAR VOLUME 93.2 fl (80.0-96.0); MONO # 0.6 10^3/uL (0.0-0.8); MONO % 10.2 % (2.0-8.0); NEUTROPHILS # 3.3 10^3/uL (1.5-8.5); NEUTROPHILS % 58.1 % (36.0-66.0); PLATELET COUNT, AUTOMATED 227 10^3/uL (150-450); WHITE BLOOD COUNT 5.6 10^3/uL (4.0-10.0)
[2023-06-01 12:06] LABS: ALKALINE PHOSPHATASE 78 U/L (46-116); ALT/SGPT 12 U/L (7.0-40); AST/SGOT 9 U/L (<34); BILIRUBIN,TOTAL 0.9 MG/DL (0.3-1.2); BLOOD UREA NITROGEN 21 MG/DL (9-23); CALCIUM LEVEL 8.7 MG/DL (8.3-10.6); CARBON DIOXIDE LEVEL 25 MMOL/L (20-31); CHLORIDE LEVEL 108 MMOL/L (98-107); CREATININE FOR GFR 0.85 MG/DL (0.55-1.30); GLOMERULAR FILTRATION RATE > 60.0 (>32); GLUCOSE, FASTING 143 MG/DL (74-106); POTASSIUM SERUM 3.9 MMOL/L (3.5-5.1); SODIUM LEVEL 139 MMOL/L (136-145); TOTAL PROTEIN 6.3 G/DL (5.7-8.2)
[2023-06-01 12:08] LABS: THYROID STIMULATING HORMONE 2.768 uIU/ML (0.55-4.78)
== END ==
LOC: SKLAB6 11:01
PROVIDERS: ATTEND Internal Medicine
DX: R41.82 Altered mental status, unspecified (principal)